=== PATIENT | male | born 1945 | race Caucasian/White ===

== ENCOUNTER 2024-02-10 16:44 | Inpatient (IN) | payer MEDICARE, OTHER, SELFPAY ==
[2024-02-10] VITALS (10 sets, daily range): BP systolic 97–179; BP diastolic 49–117; BMI 24.7; BMI 22.0
[2024-02-10 11:55] LABS: % Basophils 0.7 % (0-2); % Eosinophils 2.2 % (0-6); % Immature Granulocytes 0.3 % (0-0.5); % Lymphocytes 10.8 % (20.5-51.1); Absolute Basophils 0.1 10^3/uL (0-0.2); Absolute Eosinophils 0.2 10^3/uL (0-0.7); Absolute Lymphocytes 0.8 10^3/uL (1.2-3.4); Absolute Monocytes 0.6 10^3/uL (0.1-0.6); Absolute Neutrophils 5.8 10^3/uL (1.4-6.5); Hematocrit 39.2 % (39.0-52.0); Hemoglobin 13.6 g/dL (13.0-18.0); Mean Corp Hgb Conc. 34.7 g/dL (33.0-37.0); Mean Corpuscular Hgb 32.5 pg (27.0-31.0); Mean Corpuscular Volume 93.6 fL (80.0-94.0); Mean Platelet Volume 9.5 fL (7.4-10.4); Nucleated Red Blood Cells % 0 % (-); Platelet Count 188 10^3/uL (130-400); Red Blood Cell Count 4.19 10^6/uL (4.70-6.10); Red Cell Dist. Width 15.2 % (11.5-14.5); White Blood Cell Count 7.4 10^3/uL (4.8-10.8)
[2024-02-10 12:29] LABS: ALT (SGPT) 524 U/L (0-50); AST (SGOT) 815 U/L (17-59); Albumin 3.3 g/dl (3.5-5.0); Alkaline Phosphatase 258 U/L (38-126); Blood Urea Nitrogen 89 mg/dl (9-20); Calcium 7.7 mg/dl (8.4-10.2); Carbon Dioxide 21 mmol/L (22-30); Chloride 95 mmol/L (98-107); Estimated Creatinine Clearance 9 ml/min; Glucose 124 mg/dl (70-99); Potassium 4.9 mmol/L (3.5-5.1); Sodium 136 mmol/L (135-145); Total Bilirubin 1.3 mg/dl (0.2-1.3); Total Protein 6.1 g/dl (6.3-8.2); eGFR 7.55
--- NOTE | 2024-02-10 13:41 | W.CON.NEPH ---
Consultation
-
Date/Time Consultation Requested: 02/10/24 1300
Date/Time Consultation Performed: 02/10/24 1330
Requesting Provider: Dr Hernandez
Performing Provider: Dr Toth
Reason for Consultation: SHAYAN
Medical History
-
Chief Complaint: Fatigue, neuropathy
History of Present Illness:
This is a 78-year-old gentleman who has diabetes mellitus type 2 on oral medications as well as Ozempic which is typically well-controlled. He has hypertension on a monotherapy regimen which is also well-controlled as well as hyperlipidemia on
statin therapy also well-controlled. 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 This has been followed in the past by various vascular surgeons including [facility] here at [facility] as
well as [facility] No surgical options were viable. He has been followed conservatively. He has very mild chronic kidney disease with baseline creatinine 1.25 last known on September 17 of this year. On Wednesday night into Wednesday he woke up with severe
lower extremity weakness to the point where he had very difficult time getting out of bed. He was mostly bedbound at that point. He was able to go to the bathroom and get some food though not a lot given the weakness. Ultimately came to the
emergency room because of the worsening weakness. Blood work had shown a creatinine of 7.0 representing significant acute kidney injury. Bladder scan in the emergency room showed 169 cc of urine.
Past Medical History
Hypertension, severe aortic stenosis, coronary disease/myocardial infarction, peripheral arterial disease, heart failure reduced ejection fraction, prostatitis, ischemic lightest, chronic chelation therapy, BPH, prostate nodule, diabetes mellitus
type 2, prostate cancer, carotid endarterectomy on the right, appendectomy, pilonidal cyst resection, distal aortic occlusion
Social History
Tobacco: Former Smoker
Alcohol: None
Family History
Family History: Not Pertinent
Allergies / Home Medications
Allergy/AdvReac Type Severity Reaction Status Date / Time
No Known Allergies Allergy Unverified 09/24/22 13:48
�Medication �Instructions �Recorded �Confirmed �Type
metformin 1,000 mg tablet 500 mg PO BID@0800,1700 Diabetes 09/24/22 02/10/24 History
oxycodone myristate 9 mg capsule 9 mg PO Q12 Pain 09/24/22 02/10/24 History
sprinkle extended release 12
hr(DON'T CRUSH) (Xtampza ER)
therapeutic multivitamin 1 tab PO DAILY Supplement 09/24/22 02/10/24 History
aspirin 81 mg chewable tablet 81 mg PO DAILY Blood Clot 02/10/24 02/10/24 History
Prevention/Tx
clopidogrel 75 mg tablet 75 mg PO DAILY Blood Clot 02/10/24 02/10/24 History
Prevention/Tx
ezetimibe 10 mg tablet 10 mg PO HS High Cholesterol 02/10/24 02/10/24 History
furosemide 20 mg tablet 20 mg PO DAILY Fluid 02/10/24 02/10/24 History
Retention/Swelling
glipizide 10 mg tablet, extended 10 mg PO BID@0800,1700 Diabetes 02/10/24 02/10/24 History
release 24 hr
metoprolol succinate 25 mg 25 mg PO QPM heart disease/BP 02/10/24 02/10/24 History
tablet,extended release 24 hr
rosuvastatin 40 mg tablet 40 mg PO QPM High Cholesterol 02/10/24 02/10/24 History
Review of Systems
-
Lower extremity weakness. No issues with urination. Slightly decreased intake but good appetite. No chest pain or shortness of breath.
All other systems: Negative unless noted
Physical Exam
Vital Signs
Vital Signs
Temp Pulse Resp BP Pulse Ox
98.1 F 67 18 106/49 99
02/10/24 11:47 02/10/24 12:30 02/10/24 11:47 02/10/24 12:00 02/10/24 12:30
Lab Results
WBC 7.4 10^3/uL (4.8-10.8) 11/21/24 11:48
RBC 4.19 10^6/uL (4.70-6.10) L 02/10/24 11:48
Hgb 13.6 g/dL (13.0-18.0) 02/10/24 11:48
Hct 39.2 % (39.0-52.0) 02/10/24 11:48
Plt Count 188 10^3/uL (130-400) 02/10/24 11:48
Sodium 136 mmol/L (135-145) 02/10/24 11:48
Potassium 4.9 mmol/L (3.5-5.1) 02/10/24 11:48
Chloride 95 mmol/L (98-107) L 02/10/24 11:48
Carbon Dioxide 21 mmol/L (22-30) L 02/10/24 11:48
BUN 89 mg/dl (9-20) H 02/10/24 11:48
Creatinine 7.0 mg/dL (0.7-1.3) H* 02/10/24 11:48
eGFR 7.55 02/10/24 11:48
Glucose 124 mg/dl (70-99) H 02/10/24 11:48
Calcium 7.7 mg/dl (8.4-10.2) L 02/10/24 11:48
Albumin 3.3 g/dl (3.5-5.0) L 02/10/24 11:48
Laboratory Tests
10/17/22 10/19/22
06:12 04:29
Sodium 140
Carbon Dioxide 25
Creatinine 1.1
AST 61 H
ALT 78 H
Physical Exam
Patient is awake alert oriented and in no distress. Mood and affect were pleasant, insight and judgment were good. Pupils are equal round and reactive to light, extraocular movements are intact, sclera were anicteric. Hearing was normal, ears and
nose are intact. Oropharynx was clear. Neck was supple with trachea midline and no thyromegaly. Heart was regular rate and rhythm without rubs. Lower extremities with minimal edema. Lungs were clear to auscultation bilaterally and with normal
excursion. Abdomen was soft, nontender, with normal active bowel sounds, and no hepatosplenomegaly. Skin was with erythema in the feet and with normal turgor.
Data Reviewed
-
Medical Tests (Nuc Med, Echo etc): Image Personally Visualized and interpreted (EKG on 02/10/2024 by my read shows sinus rhythm with first reAV block, anterior inferior Q waves, lateral ST-T wave abnormality)
Labs: Labs Reviewed by me
Old Records: Reviewed
Assessment/Plan
-
Assessment
SHAYAN
Elevated LFTs
Distal aortic occlusion chronic
New lower extremity weakness
Coronary artery disease
Severe aortic stenosis
Heart failure reduced ejection fraction 45%
Diabetes mellitus type 2
Hyperlipidemia
Plan
Will check urine studies, straight catheterize if necessary
Will need vascular evaluation given new weakness as well as new acute kidney injury
Renal ultrasound or other abdominal imaging study
Can check serologies if necessary though current suspicion is that of ischemic injury to the kidneys
I discussed with the patient as well as his daughter and [id number] at length regarding the potential for dialysis. Currently he would except dialysis if necessary.
Follow BMP
--- NOTE | 2024-02-10 14:33 | HPS.HSE ---
Addendum entered and electronically signed by Hayley Hernandez MD 02/10/24 19:12:
Abdominal US:
IMPRESSION:
Intrahepatic and extrahepatic bile duct dilatation. Gallbladder hydrops. No sonographic evidence for a shadowing gallbladder calculus. BILE DUCTS: There is intrahepatic or extrahepatic biliary dilatation. The common bile duct measures 15 mm in
diameter
Renal Artery US:
IMPRESSION:
Both renal arteries are patent. Elevated velocities and elevated renal to aortic ratios observed bilaterally (3.2 on the right and 3.5 on the left) suggestive for mild bilateral stenoses.
CK is elevated at
Discussed CK findings with Dr. Toth, OK with fluids NS @ 200cc/hour. went to update patient about findings, he understands he may still require HD. Currently euvolemic on exam - told to discuss with RN if symptoms of shortness of breath develop
Regarding intra and extrahepatic biliary dilation - updated GI and will order MRI for AM
Original Note:
Family Physician
-
Family Physician: Anatoliy Carter
Chief Complaint
-
worsening weakness
History of Present Illness
Mr. Vikash Mendoza is a 78 yo man with hx DM, HTN, HLD, CKD, CAD, HFrEF, BPH, HFrEF (EF 45-50%), moderate/severe , known distal aortic occlusion extending to iliac arteries (no surgical options deemed available) presents to the ER with severe lower
extremity weakness.
Medical History
Past Medical History
Past Medical History: Reports Other (DM, HTN, HLD, CKD, CAD, HFrEF, BPH, HFrEF (EF 45-50%), moderate/severe , known distal aortic occlusion extending to iliac arteries)
Past Surgical History: Reports Appendectomy and Other (pilonnidal cyst removal )
Social History
Tobacco: Former Smoker
Alcohol: None
Drug: None
Family History
Family History: Not pertinent
Allergies / Home Medications
Allergies reflects when Allergies were last updated in [email or web address].
Home Medications with original date entered in [email or web address]
Allergy/Medication List:
Allergies
Allergy/AdvReac Type Severity Reaction Status Date / Time
No Known Allergies Allergy Unverified 09/24/22 13:48
Home Medications
metformin 1,000 mg tablet 500 mg PO BID@0800,1700 Diabetes 09/24/22
oxycodone myristate 9 mg capsule sprinkle extended release 12 hr(DON'T CRUSH) (Xtampza ER) 9 mg PO Q12 Pain 09/24/22
therapeutic multivitamin 1 tab PO DAILY Supplement 09/24/22
aspirin 81 mg chewable tablet 81 mg PO DAILY Blood Clot Prevention/Tx 02/10/24
clopidogrel 75 mg tablet 75 mg PO DAILY Blood Clot Prevention/Tx 02/10/24
ezetimibe 10 mg tablet 10 mg PO HS High Cholesterol 02/10/24
furosemide 20 mg tablet 20 mg PO DAILY Fluid Retention/Swelling 02/10/24
glipizide 10 mg tablet, extended release 24 hr 10 mg PO BID@0800,1700 Diabetes 02/10/24
metoprolol succinate 25 mg tablet,extended release 24 hr 25 mg PO QPM heart disease/BP 02/10/24
rosuvastatin 40 mg tablet 40 mg PO QPM High Cholesterol 02/10/24
Review of Systems
-
History Source: Patient
A 12 point ROS was completed and negative except as noted: Yes
Physical Exam
Vital Signs
Vital Signs
Temp Pulse Resp BP Pulse Ox
98.1 F 71 15 146/79 98
02/10/24 11:47 02/10/24 14:15 02/10/24 13:45 02/10/24 14:00 02/10/24 14:00
Physical Exam
General: No Apparent Distress
HEENT: PERRLA
Respiratory: Clear; No Wheezes
Cardiac: S1/S2 and Regular Rhythm
GI: Soft and Non Tender
Musculoskeletal: No Edema
Skin: Warm and Dry; No Rash
Neuro: AO x 3
Psych: Calm
Laboratory Results
-
02/10/24 11:48
02/10/24 11:48
Laboratory Results
Total Bilirubin 1.3 mg/dl (0.2-1.3) 02/10/24 11:48
AST 815 U/L (17-59) H* 02/10/24 11:48
ALT 524 U/L (0-50) H* 02/10/24 11:48
Alkaline Phosphatase 258 U/L (38-126) H 02/10/24 11:48
Data Reviewed
-
Diagnostic Radiology: Report Reviewed by me
Lab Data: Labs Reviewed by me
Impression/Plan
-
Mr. Vikash Mendoza is a 78 yo man with hx DM, HTN, HLD, CKD, CAD, HFrEF, BPH, HFrEF (EF 45-50%), moderate/severe , known distal aortic occlusion extending to iliac arteries (no surgical options deemed available) presents to the ER with severe lower
extremity weakness. He is found to have transaminitis and acute renal failure.
Triage VS: BP 151/62, RR 13, P 71, SpO2 99% RA
LABS: WBC 7.4, Hg 13.6, PLT 188, Na 136, K+ 4.9, Cl 95, CO2 21, BUN 89, Cr 7.0, Glucose 124, Ca 7.7, T. Bili 1.3, AST 815, ALT 524, Alk Phos 258
Bladder scan 169 cc urine
EKG: NSR @ 86, q waves inferior and anterior leads
Acute Renal Failure
Significant Transaminitis
Severe peripheral arterial disease with known distal aortic occlusion extending to iliac arteries
-concern that severe PAD and aortic blockage resulting in renal failure/ shock liver and LE weakness
-admit to IMU
-case discussed with vascular and renal, and curbsiding GI
-follow up abdominal US, renal US with doppler and LE arterial US. Ideally would obtain CTA but this would result in need for HD - discussing with specialists
-continue TECHNICAL ADJUSTER asa/plavix
-TECHNICAL ADJUSTER Rosuvastatin held with significantly elevated liver enzymes
-F/U serologies ordered by renal
-will send hepatitis panel, iron studies. I have sent a message to GI explaining situation and discussing possible consult
Coronary Artery Disease
-TECHNICAL ADJUSTER asa/plavix
-cath 10/11 showed MVD and patient was to follow up with CTS
Heart Failure Reduced Ejection Fraction
Moderate/Severe
-TTE 09/25/22 - EF 45-50%; moderate to severe
-TECHNICAL ADJUSTER Metoprolol
-hold TECHNICAL ADJUSTER Lasix
Chronic Pain on Xtampza
-hold TECHNICAL ADJUSTER long acting opiate with renal impairment
-short acting Oxy 5 PRN - adjust as needed
DM
-hold TECHNICAL ADJUSTER metformin, Glipizide
-ISS low
DVT PPx hep subQ
DNR - confirmed on admission
76 minutes spent on patient care
--- NOTE | 2024-02-10 14:42 | ED.GENMED ---
History of Present Illness
General
Chief Complaint: Weakness
Source: patient and spouse
Exam Limitations: none
Time Seen by Provider: 02/10/24 12:26
Nursing documentation reviewed up to this point in time: agreed with
History of Present Illness
History of Present Illness:
78-year-old male presenting to the emergency department today with concerns of bilateral leg pain some general weakness. Has been able to ambulate feels they are slightly weak and recently. Has had ongoing symptoms for many months. He is also had
decreased appetite. Denies any chest pain shortness breath fevers recent illness
Past History
Past History
ED Past Medical History: HTN, Hypercholesterolemia and NIDDM
ED Past Surgical History: Appendectomy and Cardiac
Social History
Tobacco: Non-smoker
Alcohol: None
Drug: None
Personal: Single
Living: with family
Review of Systems
Review of Systems
Allergies reviewed?: Yes
All Other Systems: ROS reviewed and negative except as documented in HPI and ROS
Phy Exam
Physical Exam
Physical Exam:
GENERAL: Alert , in no apparent distress
EYE: pupils equal and reactive
NECK: Supple, no significant adenopathy.
ENT: o/p clr, mmm.
CARDIAC: Regular rate and rhythm .
LUNGS: Clear breath sounds bilaterally, no acute respiratory distress, no wheezes/rales/rhonchi
ABDOMEN: Soft, without focal tenderness, no r/g, no cvat
NEUROLOGICAL: Alert and oriented, no focal neuro deficits
SKIN: Warm and dry, skin intact.
MUSCULOSKELETAL: No edema, well perfused.
PSYCH: Normal and appropriate interaction.
Course
Orders/Labs/Results
Orders:
Orders
02/10/24 11:48
Complete Blood Count/With Diff Urgent
Comprehensive Metabolic Panel Urgent
02/10/24 13:11
EKG [Electrocardiogram (*1)] Urgent
Reason for Study: Fatigue / Weakness
EKG- Treatment ONCE
Urinalysis Reflex To Culture Urgent
Date Specimen was Collected: 02/10/24
Time Specimen was Collected: 13:13
02/10/24 14:29
Body Fluid for Eosinophils Routine
Urine Creatinine Routine
02/10/24 14:30
Urine Sodium Routine
02/10/24 14:55
US Abdomen Complete/Upper Urgent
Comment:
Reason For Exam: transaminitis
02/10/24 15:00
Aspirin Chewable [Low Strength Aspirin] 81 mg PO NOW STA
02/10/24 15:05
0.9% Sodium Chloride 250 ml [Nss] 250 ml IV BOLUS
02/10/24 15:23
US Periph Art LOWER Ext w ARMINDA Urgent
Comment:
Reason For Exam: weakness BL LE
02/10/24 15:46
US Renal Artery Urgent
Reason For Exam: known aortic occlusion r/o throbosed renal arterie
02/10/24 16:25
CLAUDIA, IgG Reflex to HEp-2 [S] Routine
ANCA - MPO/PR3 Ab Profile [S] Routine
Anti Streptolysin Routine
Complement C3 Routine
Complement C4 Routine
02/10/24 16:32
Admit/Transfer Patient As Directed
Co-Sign Provider:
Level of Care: Inpatient admission
Assign to:: IMU- Intermediate Care
Physician / Group: Hayley Hernandez
Diagnosis: acute renal failure; severe PAD
Reason for Hospitalization: acute renal failure; severe PAD
Expected length of stay greater than two midnights?: Yes
ELOS- Estimated Length of Stay in days: 4
I certify the patient meets the requirements for IP care: Yes
PRN Pain Medication Management As Directed
May give lesser potent ordered pain med per pt: Yes
preference::
Protocol:: Medication orders for pain may be administered in a
manner that supports deferring to patient preference
when the pt is:
- Requesting an ordered lesser potent pain medication.
Least to most potent pain medications are defined
as: acetaminophen < NSAID < tramadol < opioids
(morphine, oxycodone, hydromorphone).
- Requesting a lesser dose of the same medication IF
ORDERED.
- Requesting a less intrusive route of administration
if both routes are prescribed by the provider (PO <
IV).
02/10/24 16:33
Clopidogrel Bisulfate [Plavix] 75 mg PO NOW STA
02/10/24 16:34
Code Status As Directed
Resuscitation Status: Do not resuscitate
Reached after discussion with pt or family/Healthcare POA: Yes
DNR Bracelet Application ONCE
02/10/24 16:36
Add On- LAB Routine
Tests Added?: TSH
Add On- LAB Urgent
Tests Added?: iron, ferritin, TIBC, iron % saturation
02/10/24 16:38
Hepatitis A IgM Antibody Routine
Hepatitis B Core Ab, IgM Routine
Hepatitis B Core Ab, Total Routine
Hepatitis B Surface Antigen Routine
Hepatitis C Antibody Routine
INR [Prothrombin Time] Routine
02/10/24 16:41
Tylenol [Acetaminophen] Routine
02/10/24 16:44
Echo 2D MMode Color/Doppler Routine
Reason for Study: concern for cardioembolic disease
Abnormal Lab Results
02/10/24
11:48
RBC 4.19 L 10^6/uL
(4.70-6.10)
MCH 32.5 H pg
(27.0-31.0)
RDW 15.2 H %
(11.5-14.5)
Absolute Lymphs (auto) 0.8 L 10^3/uL
(1.2-3.4)
Neutrophils % 78.0 H %
(42.2-75.2)
Lymphocytes % 10.8 L %
(20.5-51.1)
Chloride 95 L mmol/L
(98-107)
Carbon Dioxide 21 L mmol/L
(22-30)
BUN 89 H mg/dl
(9-20)
Creatinine 7.0 H* mg/dL
(0.7-1.3)
Glucose 124 H mg/dl
(70-99)
Calcium 7.7 L mg/dl
(8.4-10.2)
AST 815 H* U/L
(17-59)
ALT 524 H* U/L
(0-50)
Alkaline Phosphatase 258 H U/L
(38-126)
Total Protein 6.1 L g/dl
(6.3-8.2)
Albumin 3.3 L g/dl
(3.5-5.0)
02/10/24 11:48
02/10/24 11:48
Vital Signs
Initial and Last Documented VS:
Initial Vital Signs
BP
151/62
02/10/24 11:44
Last Documented Vital Signs
Temp Pulse Resp BP Pulse Ox
98.1 F 67 15 97/54 98
02/10/24 11:47 02/10/24 15:30 02/10/24 15:30 02/10/24 15:00 02/10/24 15:30
MDM/Problems Addressed
MDM/Problems Addressed:
78-year-old male past medical history of significant vascular disease, heart disease hypertension diabetes presenting to the emergency department today with concerns of worsening lower extremity discomfort and some generalized weakness. This has
been ongoing for multiple months seemingly somewhat worse over the past week denies specific abdominal pain fevers chest pain shortness of breath. Does have known vascular disease and was seen here a year ago with significant vascular disease to
the abdomen. He previously did not have significant abnormalities to his creatinine there was slight elevations last year but improved to around 1 moving forward. His creatinine here today 7.0 BUN of 89. Additionally has a transaminitis.
Concerning for vascular cause. Case discussed with nephrology who will follow the case. Patient will be admitted for further assessment. Vascular surgery was also notified.
CTA 09/2022: ABDOMEN and PELVIS CTA:
1. COMPLETE OCCLUSION of the INFRARENAL ABDOMINAL aorta at the level of the origin of the inferior mesenteric artery. Complete occlusion of the left common iliac and external iliac arteries.
2. Reconstitution of the common femoral arteries bilaterally during the arterial phase of enhancement with retrograde blood flow in the right external and common iliac arteries. Patent bilateral common femoral, superficial femoral, and profundus
femoral arteries.
3. SEVERE STENOSIS (greater than 70% diameter) at the origin of the INFERIOR MESENTERIC ARTERY.
4. ACUTE ISCHEMIC COLITIS of the ENTIRE DESCENDING COLON.
*Critical Care Note
Total Time (30-74mins, 75-104mins- exclusive of procedures): Not Applicable
ED Attending Note
-
Portions of this chart may have been created with voice recognition software.� Occasional wrong word or��sound alike� substitutions may have occurred due to the inherent limitations of voice recognition software.
Discharge Plan
Departure
Patient Disposition: Admit
Date of Disposition: 02/10/24
Time of Disposition: 14:45
Admit to: Med/Surg
Admit to doctor: Mary
Presentation/result/management discussed w/ accepting MD/DO: Hospitalist
Patient with high blood pressure during this ER visit?: No
Condition: Good
Covid-19: Not Applicable
Discharge Problem:
Renal failure, Transaminitis
Interventions
Interventions:
*Risk Screen - Suicide Last Done: 02/10/24 11:47
*General Assessment Last Done: 02/10/24 11:47
*Neglect/Abuse Screening Last Done: 02/10/24 11:47
*ED COVID-19 Vaccine History Last Done: 02/10/24 11:47
ED- Cardiac Assessment Last Done: 02/10/24 12:07
ED- Neurological Assessment Last Done: 02/10/24 12:07
ED- Pulmonary Assessment Last Done: 02/10/24 12:07
[2024-02-10] MEDS: LOW STRENGTH ASPIRIN 81 MG PO (15:05)
[2024-02-10] MEDS: NSS 250 IV (15:08)
--- NOTE | 2024-02-10 16:31 | CON.VAS ---
Addendum entered and electronically signed by Lico Do III, MD 02/11/24 13:52:
Patient seen and examined in the vascular lab with RACHELLE Salazar. I agree with the history/physical exam/assessment and plan:
Known to me from previous hospitalization consult and outpatient encounter
Known distal aortic and bilateral iliac occlusions
Presents with fatigue and weakness
No leg/foot pain. No wounds
SHAYAN
Appears well on exam, non toxic
Abd soft, NT
Feet cool to touch bilat
Dopp signals present bilat feet
No wounds bilat
His feet/LE's appear to be at baseline. Will obtain updated arterial studies.
Evaluate renal arteries for patency given new renal failure and history of distal aortic occlusion.
GI for workup of liver enzymes
Lico Do MD
Vascular Surgery
Original Note:
Consultation
Consultation Request
Performing Provider: Ernestina
Reason for Consultation: Bilateral lower extremity weakness
Medical History
-
Chief Complaint: Bilateral lower extremity weakness
History of Present Illness:
77-year-old male presented to ER today with a 1 week history of lower extremity weakness. Patient states the weakness has become more profound over the last day. He was unable to get himself out of bed this morning which led to this ER visit.
Patient is known to the vascular service as we saw him last admission in October 2022. At that time patient was noted to have distal occlusion of the aorta and iliac arteries by CT scan. At that time the patient noted no history of claudication,
rest pain, tissue loss. He states this has not changed. He does have [id number] neuropathy pain in his lower extremities and feet which is longstanding and unchanged. He is not very active.
Vascular consult for lower extremity weakness. Patient seen at bedside in US with Dr. Do. Nonpalpable femoral pulses, this is unchanged from prior visit. + Doppler to the right DP and + Doppler to left PT. bilateral feet are cool to touch which
patient states is his baseline. Slightly sluggish cap refill at the toes bilaterally. No wounds noted. Denies pain.
Past Medical History
Past Medical History: CAD, HTN, Hypercholesterolemia, NIDDM, IN, Valvular Disease and Other (Peripheral neuropathy, prostatitis)
Past Surgical History: Appendectomy and Other (Carotid endarterectomy at outside facility)
Social History
Tobacco: Former Smoker
Family History
Family History: Reviewed & Not Pertinent
Allergies / Home Medications
Allergy/AdvReac Type Severity Reaction Status Date / Time
No Known Allergies Allergy Unverified 09/24/22 13:48
�Medication �Instructions �Recorded �Confirmed �Type
metformin 1,000 mg tablet 500 mg PO BID@0800,1700 Diabetes 09/24/22 02/10/24 History
oxycodone myristate 9 mg capsule 9 mg PO Q12 Pain 09/24/22 02/10/24 History
sprinkle extended release 12
hr(DON'T CRUSH) (Xtampza ER)
therapeutic multivitamin 1 tab PO DAILY Supplement 09/24/22 02/10/24 History
aspirin 81 mg chewable tablet 81 mg PO DAILY Blood Clot 02/10/24 02/10/24 History
Prevention/Tx
clopidogrel 75 mg tablet 75 mg PO DAILY Blood Clot 02/10/24 02/10/24 History
Prevention/Tx
ezetimibe 10 mg tablet 10 mg PO HS High Cholesterol 02/10/24 02/10/24 History
furosemide 20 mg tablet 20 mg PO DAILY Fluid 02/10/24 02/10/24 History
Retention/Swelling
glipizide 10 mg tablet, extended 10 mg PO BID@0800,1700 Diabetes 02/10/24 02/10/24 History
release 24 hr
metoprolol succinate 25 mg 25 mg PO QPM heart disease/BP 02/10/24 02/10/24 History
tablet,extended release 24 hr
rosuvastatin 40 mg tablet 40 mg PO QPM High Cholesterol 02/10/24 02/10/24 History
Review of Systems
-
History Source: Patient
All other systems: Negative unless noted
Constitutional: Reports No Symptoms
EENT: Reports No Symptoms
Respiratory: Reports No Symptoms
Cardiac: Reports No Symptoms
Vascular: Denies Leg Pain / Claudication
Abdomen/GI: Reports No Symptoms
: Reports No Symptoms
Musculoskeletal: Reports No Symptoms
Skin: Reports No Symptoms
Neurological: Reports No Symptoms
Endocrine: Reports No Symptoms
Physical Exam
Vital Signs
Temp Pulse Resp BP Pulse Ox
98.1 F 67 15 97/54 98
02/10/24 11:47 02/10/24 15:30 02/10/24 15:30 02/10/24 15:00 02/10/24 15:30
Lab Results
02/10/24 11:48
02/10/24 11:48
Physical Exam
General: No Apparent Distress
HEENT: Normocephalic and Atraumatic
Respiratory: Non Labored Respirations
Cardiac: Negative JVD
GI: Soft, Non Tender and Non Distended
Musculoskeletal: No Clubbing, No Cyanosis and No Edema
Skin: Dry
Neuro: Awake, Alert and Oriented
Psych: Calm
Pulses: Bilateral Femoral: Doppler (Nonpalpable), Right Dorsalis Pedis: Doppler and Left Posterior Tibial: Doppler
Assessment / Plan
-
69-year-old male here for weakness bilateral lower extremities, left slightly weaker than right
No pain or wounds to the bilateral feet
New onset renal failure
Plan:
-Renal ultrasound to rule out thrombosed renal arteries, lower extremity arterial ultrasound with ABIs
-Will follow-up after scans
-Ideally would like CTA to assess everything but given new onset renal failure would hold off
-Recommend transaminitis workup
Data Reviewed
-
Labs: Labs Reviewed by me
[2024-02-10 17:42] LABS: Iron 71 ug/dl (49-181)
[2024-02-10 17:51] LABS: Percent Saturation 21 % (20-50); Total Iron Binding Capacity 335 ug/dl (261-462)
[2024-02-10 17:55] LABS: COVID-19 Antigen Negative (Negative)
[2024-02-10 18:04] LABS: INR 1.32; PT 16.9 Sec (11.4-14.6); Urine Albumin 2+ (Neg - Trace); Urine Bilirubin 1+ (Negative); Urine Character Clear (Clear); Urine Color Yellow; Urine Glucose Trace (Negative); Urine Ketone Negative (Negative); Urine Leukocyte Trace (Negative); Urine Nitrite Negative (Negative); Urine Occult Blood 4+ (Negative); Urine Specific Gravity 1.015 (<1.030); Urine Urobilinogen Negative (Neg - 1+)
[2024-02-10 18:09] LABS: Acetaminophen < 10 ug/ml (10-30)
[2024-02-10 18:22] LABS: Urine Squamous Cell 0-2 /LPF (Few)
[2024-02-10 18:23] LABS: Urine Bacteria Few (Negative); Urine White Cell 0-2 /HPF (0-5)
[2024-02-10 18:24] LABS: Urine Hyaline Cast 0-2 /LPF (0-2); Urine Sodium 55 mmol/L (30-90)
[2024-02-10 18:37] LABS: TSH 3.73 uIU/ml (0.47-4.68)
[2024-02-10 18:44] LABS: Creatine Phosphokinase 19682 U/L (55-170)
[2024-02-10] MEDS: PLAVIX 75 MG PO (18:48)
[2024-02-10] MEDS: TOPROL XL 25 MG PO (18:48)
[2024-02-10] MEDS: NSS 1000 IV (18:49)
[2024-02-10 19:09] LABS: Complement C3 126 mg/dl (88-165)
--- NOTE | 2024-02-10 19:40 | PTCARENOTE ---
Patient arrived to unit via stretcher, alert and oriented x 3. 94% room air. lungs clear throughout. telemetry NSR 1 degree. ABd soft, Do patent with dominic urine. Family at bedside and Dr. Hernandez arrived to update them on plan of care and Ultra
sound results
[2024-02-10 19:46] LABS: Glucose - Point of Care 76 mg/dl (70-99)
[2024-02-10] MEDS: HEPARIN 5000 UNITS SC (20:22)
[2024-02-10] MEDS: ROXICODONE 5 MG PO (20:29)
[2024-02-10 22:31] LABS: Blood Urea Nitrogen 93 mg/dl (9-20); Calcium 7.4 mg/dl (8.4-10.2); Carbon Dioxide 18 mmol/L (22-30); Glucose 86 mg/dl (70-99)
[2024-02-10 22:46] LABS: Estimated Creatinine Clearance 8 ml/min; eGFR 6.95
[2024-02-10 22:56] LABS: Chloride 98 mmol/L (98-107); Potassium 5.1 mmol/L (3.5-5.1); Sodium 137 mmol/L (135-145)
--- NOTE | 2024-02-10 23:46 | PTCARENOTE ---
Pt AAOx3, pleasant. BMP drawn per MD order, results relayed to Dr. Hernandez via TT. SR with 1st degree AV block on monitor. VS as documented. + dp pulses. Pt c/o pain/tingling in LEs in addition to pain on his sacrum and pain r/t hemorrhoids. Frequent
repositioning provided. Roxicodone provided per MAY. Do catheter intact. IVF running through R hand IV. Call cisse within reach. Pt ringing appropriately.
--- NOTE | 2024-02-10 23:59 | W.PN.UPDATE ---
Update Note
Progress Note Update
I'll hold Plavix with on-going work-up of liver and kidneys. Team to resume when clear if no procedures needed.
[2024-02-11] VITALS (19 sets, daily range): BP systolic 84–147; BP diastolic 33–107; BMI 22.5
[2024-02-11] MEDS: SODIUM BICARBONATE 1150 MEQ IV ×4 (00:31→21:57)
[2024-02-11] MEDS: ROXICODONE 5 MG PO ×2 (05:59→20:38)
--- NOTE | 2024-02-11 06:01 | PTCARENOTE ---
Pt c/o new lower abdominal pain and diaphoresis, states unable to rate pain. RACHELLE Quick notified, PRN roxicodone given per MAY.
[2024-02-11 06:14] LABS: Hematocrit 35.7 % (39.0-52.0); Hemoglobin 12.2 g/dL (13.0-18.0); Mean Corp Hgb Conc. 34.2 g/dL (33.0-37.0); Mean Corpuscular Hgb 32.5 pg (27.0-31.0); Mean Corpuscular Volume 95.2 fL (80.0-94.0); Mean Platelet Volume 9.3 fL (7.4-10.4); Platelet Count 163 10^3/uL (130-400); Red Blood Cell Count 3.75 10^6/uL (4.70-6.10); Red Cell Dist. Width 15.2 % (11.5-14.5); White Blood Cell Count 9.2 10^3/uL (4.8-10.8)
[2024-02-11 06:18] LABS: INR 1.29; PT 16.6 Sec (11.4-14.6)
[2024-02-11 06:48] LABS: ALT (SGPT) 482 U/L (0-50); AST (SGOT) 861 U/L (17-59); Albumin 2.8 g/dl (3.5-5.0); Alkaline Phosphatase 266 U/L (38-126); Blood Urea Nitrogen 93 mg/dl (9-20); Calcium 6.8 mg/dl (8.4-10.2); Carbon Dioxide 19 mmol/L (22-30); Chloride 95 mmol/L (98-107); Direct Bilirubin 0.8 mg/dl (0.0-0.4); Estimated Creatinine Clearance 8 ml/min; Glucose 50 mg/dl (70-99); Magnesium 2.4 mg/dl (1.6-2.3); Potassium 4.5 mmol/L (3.5-5.1); Sodium 136 mmol/L (135-145); Total Bilirubin 0.9 mg/dl (0.2-1.3); Total Protein 5.3 g/dl (6.3-8.2); eGFR 6.95
[2024-02-11 06:54] LABS: Creatine Phosphokinase 20394 U/L (55-170)
[2024-02-11 07:17] LABS: Glucose - Point of Care 43 mg/dl (70-99)
[2024-02-11] MEDS: DEXTROSE 50% SYRINGE 12.5 GRAMS IV (07:45)
[2024-02-11 07:52] LABS: Glucose - Point of Care 46 mg/dl (70-99)
--- NOTE | 2024-02-11 08:05 | W.PN.NEPH.PH ---
Today's Communication / Plan
-
Serological workup in progress
Will provide dialysis tomorrow,orders provided
IR to be consulted for temp dialysis catheter placed
Assessment/Plan
-
Assessment
SHAYAN
Elevated LFTs
Distal aortic occlusion chronic
New lower extremity weakness
Coronary artery disease
Severe aortic stenosis
Heart failure reduced ejection fraction 45%
Diabetes mellitus type 2
Hyperlipidemia
Plan
Renal artery duplex notable for patent blood flow to kidneys bilaterally
checked urine studies, straight catheterize if necessary (check aggressively)
Reviewed vascular evaluation given new weakness as well as new acute kidney injury
No evidence of hydronephrosis by abdominal ultrasound
Urine studies noted 4+ blood 2+ albumin, fractional excretion of sodium not consistent with prerenal stimulus
Holding metformin and diuretics at this time
Can check serologies if necessary though current suspicion is that of ischemic injury to the kidneys
Previously discussed with the patient as well as his daughter and [id number] at length regarding the potential for dialysis. Currently he would except dialysis if necessary.
Creatinine remains elevated at 7.5
Will arrange for dialysis tomorrow, no acute dialysis indication today
May require eventual renal biopsy early next week
-
-
Date of Service: February 11, 2024
CC / HPI / ROS
-
Chief Complaint:
Acute kidney
History of Present Illness:
Creatinine unchanged at 7.5
Hemodynamically stay
Review of Systems:
No chest pain or shortness of breath
Oliguric via Do
Lower extremity leg weakness
Labs
-
Labs:
WBC 9.2 10^3/uL (4.8-10.8) 02/11/24 05:55
RBC 3.75 10^6/uL (4.70-6.10) L 02/11/24 05:55
Hgb 12.2 g/dL (13.0-18.0) L 02/11/24 05:55
Hct 35.7 % (39.0-52.0) L 02/11/24 05:55
Plt Count 163 10^3/uL (130-400) 02/11/24 05:55
Sodium 136 mmol/L (135-145) 02/11/24 05:55
Potassium 4.5 mmol/L (3.5-5.1) 02/11/24 05:55
Chloride 95 mmol/L (98-107) L 02/11/24 05:55
Carbon Dioxide 19 mmol/L (22-30) L 02/11/24 05:55
BUN 93 mg/dl (9-20) H 02/11/24 05:55
Creatinine 7.5 mg/dL (0.7-1.3) H* 02/11/24 05:55
eGFR 6.95 02/11/24 05:55
Glucose 50 mg/dl (70-99) L* 02/11/24 05:55
Calcium 6.8 mg/dl (8.4-10.2) L* 02/11/24 05:55
Albumin 2.8 g/dl (3.5-5.0) L 02/11/24 05:55
Physical Exam
-
Vital Signs:
Vital Signs
Temp Pulse Resp BP Pulse Ox
98.1 F 93 21 106/69 99
02/11/24 04:59 02/11/24 06:00 02/11/24 06:00 02/11/24 06:00 02/11/24 02:00
Cardiovascular:: Regular rate and rhythm
Respiratory:: Bilateral: CTA
Lung Excursion:: Normal
Abdomen:: Nontender and Soft
Bowel Sounds:: Normal
Extremity Edema:: None: Bilateral:
Do Catheter: Yes
[2024-02-11 08:16] LABS: Glucose - Point of Care 93 mg/dl (70-99)
[2024-02-11] MEDS: NOVOLOG FLEXPEN-LOW RESISTANCE SC ×2 (08:16→16:44)
[2024-02-11] MEDS: CALCIUM GLUCONATE 100 IV (08:29)
[2024-02-11] MEDS: DEXTROSE 50% SYRINGE 25 GRAMS IV (08:29)
[2024-02-11 08:32] LABS: Anti Streptolysin Negative (Negative)
[2024-02-11] MEDS: LOW STRENGTH ASPIRIN 81 MG PO (08:36)
[2024-02-11] MEDS: HEPARIN 5000 UNITS SC ×2 (08:36→20:38)
--- NOTE | 2024-02-11 08:41 | PTCARENOTE ---
Pt hypoglycemic on am labs and morning accucheck. Juice give by assistant casino shift manager nurse x2 with re check x2, pt remains hypoglycemic. 1/2 amp D50 administered per protocol with good results. Dr. Melgar notified, additional order received for amp of D50 and
maintenance fluids. D50 administered, see MAY. IVT to bedside to obtain additional site.
[2024-02-11] MEDS: D5W 1000 IV (09:16)
[2024-02-11 10:19] LABS: Glucose - Point of Care 172 mg/dl (70-99)
[2024-02-11 11:32] LABS: Hepatitis B Surface Antigen Negative (Negative)
[2024-02-11 11:46] LABS: Glycohemoglobin (HgbA1c) 7.7 % (4.0-5.6)
[2024-02-11 11:51] LABS: Hepatitis B Core Ab, Total Negative (Negative); Hepatitis C Antibody Negative (Negative)
[2024-02-11 12:43] LABS: Glucose - Point of Care 181 mg/dl (70-99)
--- NOTE | 2024-02-11 13:00 | CON.GI ---
Addendum entered and electronically signed by Kailey Khan Do, MD 02/11/24 18:00:
I saw and examined the patient.
The SPINNING LATHE OPERATOR's note was reviewed and I agree with the note.
Comment: Vikash is a 78yo M with h/o DM, CAD, CM, and aortic stenosis with CKD who presents with acute bilateral LE weakness with concern for rhabdomyolysis. GI consulted for elevated LFTs and CBD dilation. He denies abdominal pain,
nausea/vomiting, diarrhea, dysphagia. Vitals stable, exam is obese NTTP, NABS. Labs reviewed elevated lipase 1336. CK 20,394. LFTs in hepatocellular pattern. MRI suspicious for pancreatitis. Distended gallbladder. Biliary ductal dilatation
appears relatively stable compared to prior CT examination from September 2022.
Impression
- Elevated LFTs
AST/ALT may rise in setting of rhabdomyolysis (elevated CK and muscle weakness) not liver disease
Other consideration is passed gallstone or congestive hepatopathy
- Distended or hydrops gallbladder
- Chemical pancreatitis
based on elevated lipase and MRI findings but no abd pain
- Acute on chronic kidney injury
- DM
- CAD
- CM
- Aortic stenosis
Recommendations
- No role for ERCP given MRI findings
- Consider consulting surgery for hydrops/distended gallbladder
- Serial H/H
- Awaiting viral hepatitis serologies
- Checking Doppler on Abd US to ensure patent vasculature
- Appreciate renal recs
Will follow with you
Addendum entered and electronically signed by RACHELLE Pelayo 02/11/24 13:37:
-Consider surgical consult for gallbladder hydrops
Original Note:
Consultation
-
Date/Time Consultation Requested: 02/10/24 1397
Date/Time Consultation Performed: 02/11/24 1245
Requesting Provider: Dr. Hernandez
Performing Provider: Dr. Light/RACHELLE Saxena
Reason for Consultation: elevated LFT
Medical History
Chief Complaint / HPI
Chief Complaint: Leg weakmess
History of Present Illness:
78-year-old male with past medical history of diabetes, chronic neuropathy, CAD with non-ST elevated [place], PAD, ischemic colitis, cardiomyopathy EF 45 to 50%, aortic stenosis, CKD, BPH who presented to the emergency room with inability to stand or
walk on Wednesday. Patient states that prior to this on Wednesday evening he was doing well. He does have a history of chronic opiate use for severe peripheral artery disease and chronic lower extremity pain. We are asked to evaluate for
elevated LFTs. The patient denies any GI complaints. He has never seen a serologist. He has never had an endoscopy or colonoscopy before. He denies any family history of GI malignancies. He states that other than not being able to walk
on Wednesday and needing the assistance of his son-in-law he was not having any issues. He denies any fevers, chills, nausea, vomiting, melena, hematochezia, dysphagia or odynophagia. No early satiety or unintentional weight loss. He denies
any abdominal discomfort. His bowel movements are soft formed regular daily and brown. He states his urine was normal yellow color until admission. Currently has a Do in place with rust colored urine. He denies any history of hepatitis,
jaundice or liver disease. He smoked but quit over 40 years ago. He does not drink any alcohol nor has he ever had any alcohol issues in the past. Denies any history of tattoos, piercings or IV drug use. He states he had no new medications. He
denies any falls or trauma. He denies laying around for extended period of time. Hepatitis B surface antigen negative, hepatitis B core total antibody negative, hepatitis C antibody negative. Hepatitis A IgM antibody pending, hepatitis B core IgM
antibody pending. Acetaminophen level negative. COVID-negative. CLAUDIA pending. WBC 9.2, hemoglobin 12.2 (baseline hemoglobin appears to be in the 11 range), hematocrit 35.7, platelets 163, PT 16.6, INR 1.29, sodium 136, potassium 4.5, chloride 95,
CO2 19, BUN 93, creatinine 7.5, glucose 50, hemoglobin A1c 7.7, calcium 6.8, magnesium 2.4, iron 71, TIBC 335, percent iron saturation 21, ferritin 335.0, total bilirubin 0.9 (down from 1.3), direct bilirubin 0.8, AST 861 (up from 815), ALT 482
(down from 524), alk phos 266 (up from 258), [place] [address] (up from ), albumin 2.8
Past Medical History
Past Medical History: Other (diabetes, chronic neuropathy, CAD with non-ST elevated NJ, PAD, ischemic colitis, cardiomyopathy EF 45 to 50%, aortic stenosis, CKD, BPH)
Past Surgical History: Other (Appendectomy, pilonidal cyst, carotid endarterectomy)
Social History
Tobacco: Former Smoker
Alcohol: None
Drug: None
Living: With Family
Employment: Retired
Family History
Family History: Other (No family history gastrointestinal malignancy or IBD)
Allergies / Home Medications
Allergy/AdvReac Type Severity Reaction Status Date / Time
No Known Allergies Allergy Unverified 09/24/22 13:48
�Medication �Instructions �Recorded
metformin 1,000 mg tablet 500 mg PO BID@0800,1700 Diabetes 09/24/22
oxycodone myristate 9 mg capsule 9 mg PO Q12 Pain 09/24/22
sprinkle extended release 12
hr(DON'T CRUSH) (Xtampza ER)
therapeutic multivitamin 1 tab PO DAILY Supplement 09/24/22
aspirin 81 mg chewable tablet 81 mg PO DAILY Blood Clot 02/10/24
Prevention/Tx
clopidogrel 75 mg tablet 75 mg PO DAILY Blood Clot 02/10/24
Prevention/Tx
ezetimibe 10 mg tablet 10 mg PO HS High Cholesterol 02/10/24
furosemide 20 mg tablet 20 mg PO DAILY Fluid 02/10/24
Retention/Swelling
glipizide 10 mg tablet, extended 10 mg PO BID@0800,1700 Diabetes 02/10/24
release 24 hr
metoprolol succinate 25 mg 25 mg PO QPM heart disease/BP 02/10/24
tablet,extended release 24 hr
rosuvastatin 40 mg tablet 40 mg PO QPM High Cholesterol 02/10/24
Review of Systems
-
All other systems: A 12 pt ROS was Negative except as stated above in HPI
Vital Signs
Temp Pulse Resp BP Pulse Ox
98.1 F 84 14 130/62 96
02/11/24 04:59 02/11/24 10:00 02/11/24 10:00 02/11/24 08:00 02/11/24 10:45
Physical Exam
Exam
General: No Apparent Distress
HEENT: Anicteric
Respiratory: Clear
Cardiac: Murmur
GI: Soft, Non Tender, Non Distended and Normal Bowel Sounds
Musculoskeletal: No Edema and Other (Pale, positive sensation bilateral lower extremities, able to wiggle toes)
Skin: Dry and Other
Neuro: AO x 3
Psych: Calm
Results
WBC 9.2 10^3/uL (4.8-10.8) 02/11/24 05:55
Hgb 12.2 g/dL (13.0-18.0) L 02/11/24 05:55
Hct 35.7 % (39.0-52.0) L 02/11/24 05:55
MCV 95.2 fL (80.0-94.0) H 02/11/24 05:55
Plt Count 163 10^3/uL (130-400) 02/11/24 05:55
Absolute Neuts (auto) 5.8 10^3/uL (1.4-6.5) 02/10/24 11:48
PT 16.6 Sec (11.4-14.6) H 02/11/24 05:55
INR 1.29 02/11/24 05:55
Sodium 136 mmol/L (135-145) 02/11/24 05:55
Potassium 4.5 mmol/L (3.5-5.1) 02/11/24 05:55
Chloride 95 mmol/L (98-107) L 02/11/24 05:55
Carbon Dioxide 19 mmol/L (22-30) L 02/11/24 05:55
BUN 93 mg/dl (9-20) H 02/11/24 05:55
Creatinine 7.5 mg/dL (0.7-1.3) H* 02/11/24 05:55
Calcium 6.8 mg/dl (8.4-10.2) L* 02/11/24 05:55
Total Bilirubin 0.9 mg/dl (0.2-1.3) 02/11/24 05:55
AST 861 U/L (17-59) H* 02/11/24 05:55
ALT 482 U/L (0-50) H 02/11/24 05:55
Alkaline Phosphatase 266 U/L (38-126) H 02/11/24 05:55
Hep B Core Total Ab Negative (Negative) 02/10/24 17:29
Hepatitis C Antibody Negative (Negative) 02/10/24 17:29
Diagnostic Image Results:
Ultrasound the abdomen:
Intrahepatic and extrahepatic bile duct dilatation. Gallbladder hydrops. No sonographic evidence for a shadowing gallbladder calculus.
MRI Abd without contrast:
IMPRESSION:
Minimal upper abdominal ascites. Findings suspicious for pancreatitis. Clinical correlation recommended.
Distended gallbladder. Biliary ductal dilatation appears relatively stable compared to prior CT examination from September 2022. No definite evidence of choledocholithiasis. No evidence of cholelithiasis on MRI examination.
Prior GI Procedures:
EGD: Never had
Colonoscopy: Never had
Assessment / Plan
-
78-year-old male with past medical history of diabetes, chronic neuropathy, CAD with non-ST elevated NJ, PAD, ischemic colitis, cardiomyopathy EF 45 to 50%, aortic stenosis, CKD, BPH who presented to the emergency room with inability to stand or
walk on Wednesday. Patient states that prior to this on Wednesday evening he was doing well. He does have a history of chronic opiate use for severe peripheral artery disease and chronic lower extremity pain. We are asked to evaluate for
elevated LFTs. Patient with no GI complaints. No abdominal pain. He denies any abdominal discomfort. His bowel movements are soft formed regular daily and brown. He states his urine was normal yellow color until admission. Currently has a
Do in place with rust colored urine. He denies any history of hepatitis, jaundice or liver disease. He smoked but quit over 40 years ago. He does not drink any alcohol nor has he ever had any alcohol issues in the past. Denies any history of
tattoos, piercings or IV drug use. He states he had no new medications. He denies any falls or trauma. He denies laying around for extended period of time. Hepatitis B surface antigen negative, hepatitis B core total antibody negative, hepatitis
C antibody negative. Hepatitis A IgM antibody pending, hepatitis B core IgM antibody pending. Acetaminophen level negative. COVID-negative. CLAUDIA pending. WBC 9.2, hemoglobin 12.2 (baseline hemoglobin appears to be in the 11 range), hematocrit
35.7, platelets 163, PT 16.6, INR 1.29, sodium 136, potassium 4.5, chloride 95, CO2 19, BUN 93, creatinine 7.5, glucose 50, hemoglobin A1c 7.7, calcium 6.8, magnesium 2.4, iron 71, TIBC 335, percent iron saturation 21, ferritin 335.0, total
bilirubin 0.9 (down from 1.3), direct bilirubin 0.8, AST 861 (up from 815), ALT 482 (down from 524), alk phos 266 (up from 258), [place] [address] (up from ), albumin 2.8
Impression:
Acute onset lower extremity weakness
Acute kidney injury
Elevated LFTs
Elevated CK
Severe aortic stenosis
Heart failure reduced ejection fraction, EF 45%
Plan:
-Check Doppler ultrasound of hepatic vasculature to ensure patency
-Await the rest of hepatitis viral panel
-Trend liver function test as well as platelets and INR
-CLAUDIA pending
-Further recommendations to be forthcoming
-
-
Thank you for consultation and allowing me to participate in the patient's care. Please call the area operations director GI physician during the after hours with any questions or concerns.
[2024-02-11] MEDS: NOVOLOG FLEXPEN-LOW RESISTANCE 1 UNITS SC (13:39)
--- NOTE | 2024-02-11 14:30 | PTCARENOTE ---
Pt to and from MRI via stretcher, now to [facility].
--- NOTE | 2024-02-11 15:02 | W.PN.HOSP.TC ---
Today's Communication/Plan
-
Assessment / Plan
Assessment / Plan
Imaging
Physical Exam
NAD, resting comfortably in bed
Scleral anicteric
Moist mucous membranes
No JVD
CTA bilateral
Normal S1-S2 no murmurs
Soft nontender nondistended bowel sounds active
No peripheral pitting edema
Moves extremities spontaneously
AAOx3
Assessment and Plan
Acute on chronic renal failure
-Nephrology following
-Bicarb drip
-Plan for hemodialysis initiation
-IR consult for temporary HD line
-Monitor urinary output
-Avoid nephrotoxins hypotension
-May require renal biopsy
Hypoglycemia
-Hypoglycemic protocol
-S/p 2 A D50
-D5 water
Transaminitis
-Potentially related to rhabdo as he has high CK
-MRI abdomen ordered
-GI ordered hepatic vasculature
-CLAUDIA pending
-Await hepatitis panel
CAD
Continue aspirin Plavix
Anticipated Discharge: > 48 hours
Subjective/Interval History
-
Date of Service: February 11, 2024
Seen and examined. No new complaints. No acute overnight events.
Objective Data
-
Labs:
Laboratory Results
02/11/24
05:55
WBC 9.2
Hgb 12.2 L
Hct 35.7 L
Plt Count 163
PT 16.6 H
INR 1.29
Sodium 136
Potassium 4.5
Chloride 95 L
Carbon Dioxide 19 L
BUN 93 H
Creatinine 7.5 H*
Glucose 50 L*
Calcium 6.8 L*
Total Bilirubin 0.9
AST 861 H*
ALT 482 H
Alkaline Phosphatase 266 H
Vital Signs:
Vital Signs
Temp Pulse Resp BP Pulse Ox
97.6 F 84 18 144/80 94
02/11/24 14:39 02/11/24 14:39 02/11/24 14:39 02/11/24 14:39 02/11/24 14:39
I&O
02/10/24 02/11/24 02/12/24
06:59 06:59 06:59
Intake Total 800 / 800
Balance 800 / 800
[2024-02-11 16:35] LABS: Lipase 1336 U/L (23-300)
[2024-02-11 16:44] LABS: Glucose - Point of Care 142 mg/dl (70-99)
[2024-02-11 17:22] LABS: Hepatitis A IgM Antibody Negative (Negative); Hepatitis B Core Ab, IgM Negative (Negative)
[2024-02-11] MEDS: TOPROL XL 25 MG PO (17:40)
--- NOTE | 2024-02-11 19:00 | PTCARENOTE ---
response for vitals signs after 190
--- NOTE | 2024-02-11 20:30 | PTCARENOTE ---
Addendum entered by Bhavna Crook RN 02/12/24 00:38:
pt as a nontunneled right internal jugular hemodialysis catheter in place with small amount of bloody drainage on dressing. first HD tomorrow at 11am.
Original Note:
Pt AAOx3, on tele SR with 1st degree AV block on monitor. B/L +dopler pulses. - pt takes prn galilea - see MAY. Do catheter intact. has family at bedside. pt has call cisse in reach.
[2024-02-11 21:47] LABS: Glucose - Point of Care 245 mg/dl (70-99)
[2024-02-12] VITALS (50 sets, daily range): BP systolic 85–153; BP diastolic 49–84; BMI 23.8
[2024-02-12] MEDS: ROXICODONE 5 MG PO ×4 (00:34→20:34)
[2024-02-12 03:30] LABS: Glucose - Point of Care 157 mg/dl (70-99)
[2024-02-12] MEDS: SODIUM BICARBONATE 1150 MEQ IV (04:34)
[2024-02-12 06:10] LABS: Hematocrit 35.9 % (39.0-52.0); Hemoglobin 12.7 g/dL (13.0-18.0); Mean Corp Hgb Conc. 35.4 g/dL (33.0-37.0); Mean Corpuscular Hgb 32.6 pg (27.0-31.0); Mean Corpuscular Volume 92.3 fL (80.0-94.0); Mean Platelet Volume 9.6 fL (7.4-10.4); Platelet Count 145 10^3/uL (130-400); Red Blood Cell Count 3.89 10^6/uL (4.70-6.10); Red Cell Dist. Width 14.8 % (11.5-14.5); White Blood Cell Count 7.6 10^3/uL (4.8-10.8)
[2024-02-12 06:25] LABS: INR 1.32; PT 16.6 Sec (11.4-14.6)
[2024-02-12 06:40] LABS: ALT (SGPT) 475 U/L (0-50); Albumin 2.4 g/dl (3.5-5.0); Alkaline Phosphatase 282 U/L (38-126); Blood Urea Nitrogen 100 mg/dl (9-20); Calcium 6.2 mg/dl (8.4-10.2); Carbon Dioxide 35 mmol/L (22-30); Chloride 80 mmol/L (98-107); Direct Bilirubin 0.9 mg/dl (0.0-0.4); Glucose 123 mg/dl (70-99); Potassium 4.8 mmol/L (3.5-5.1); Sodium 129 mmol/L (135-145); Total Bilirubin 1.1 mg/dl (0.2-1.3); Total Protein 4.9 g/dl (6.3-8.2)
[2024-02-12 06:45] LABS: AST (SGOT) 836 U/L (17-59); Estimated Creatinine Clearance 8 ml/min; eGFR 7.06
[2024-02-12 06:58] LABS: Creatine Phosphokinase 21594 U/L (55-170)
[2024-02-12] MEDS: D5W 1000 IV (07:11)
[2024-02-12 07:21] LABS: Glucose - Point of Care 119 mg/dl (70-99)
[2024-02-12] MEDS: NOVOLOG FLEXPEN-LOW RESISTANCE SC ×3 (08:41→17:00)
[2024-02-12] MEDS: LOW STRENGTH ASPIRIN 81 MG PO (08:42)
[2024-02-12] MEDS: HEPARIN 5000 UNITS SC ×2 (08:43→20:34)
--- NOTE | 2024-02-12 10:03 | W.PN.GI.CBS2 ---
Today's Communication / Plan
-
HD today may improve LFTs
Surgical consult for hydrops/distended GB
Tricky volume status given renal failure
Assessment / Plan
-
Vikash is a 78yo M with h/o DM, CAD, CM, and aortic stenosis with CKD who presents with acute bilateral LE weakness with concern for rhabdomyolysis. GI consulted for elevated LFTs and CBD dilation. He denies abdominal pain, nausea/vomiting,
diarrhea, dysphagia. Vitals stable, exam is obese NTTP, NABS. Labs reviewed elevated lipase 1336. CK 20,394. LFTs in hepatocellular pattern. MRI suspicious for pancreatitis. Distended gallbladder. Biliary ductal dilatation appears relatively
stable compared to prior CT examination from September 2022.
Impression
- Elevated LFTs
AST/ALT may rise in setting of rhabdomyolysis (elevated CK and muscle weakness) not liver disease
Other consideration is passed gallstone or congestive hepatopathy
- Distended or hydrops gallbladder
- Pancreatitis
- Acute on chronic kidney injury
- DM
- CAD
- CM
- Aortic stenosis
Recommendations
- No role for ERCP given MRI findings
- Consider consulting surgery for hydrops/distended gallbladder
- Serial H/H
- Awaiting viral hepatitis serologies
- Appreciate renal recs, HD for today
- Consider IVF may help rhabdo and pancreatitis
- NPO for now
Above d/w hospitalist. Will follow with you
Subjective
Subjective
Date of Service: February 12, 2024
He reports diffuse abd pain. No nausea/vomiting. His bilateral LE more weakness with pain. Dialysis catheter placed yesterday and having more pain.
Objective
Data Reviewed
Laboratory Data:
Laboratory Results
02/12/24 05:53
02/12/24 05:53
Laboratory Results
PT 16.6 Sec (11.4-14.6) H 02/12/24 05:53
INR 1.32 11/23/24 05:53
Magnesium 2.4 mg/dl (1.6-2.3) H 02/11/24 05:55
Total Bilirubin 1.1 mg/dl (0.2-1.3) 02/12/24 05:53
AST 836 U/L (17-59) H* 02/12/24 05:53
ALT 475 U/L (0-50) H 02/12/24 05:53
Alkaline Phosphatase 282 U/L (38-126) H 02/12/24 05:53
Lipase 1336 U/L (23-300) H* 02/11/24 05:55
Vital Signs and I&O:
Vital Signs
Temp Pulse Resp BP Pulse Ox
97.5 F 94 18 125/62 98
02/12/24 07:08 02/12/24 06:00 02/12/24 07:08 02/12/24 06:00 02/12/24 06:00
I&O
02/11/24 02/12/24 02/13/24
06:59 06:59 06:59
Intake Total 800 / 800 3340 / 3340
Output Total 475 / 475
Balance 800 / 800 2865 / 2865
Physical Exam
Physical Exam
GEN: No acute distress, conversant, irritable
HEENT: anicteric, extraocular movements intact, clear oropharynx without exudates
GI: soft, obese mildly-distended, not tender to palpation, normal active bowel sounds, no hepatosplenomegaly
EXT: bilateral LE weakness and pain
NEURO: AAOx3, non-focal
[2024-02-12] MEDS: MANNITOL 25% 12.5 GRAMS IV ×2 (12:06→12:57)
[2024-02-12 12:57] LABS: Glucose - Point of Care 88 mg/dl (70-99)
--- NOTE | 2024-02-12 13:30 | CON.GS ---
Consultation
-
Date/Time Consultation Requested: 02/12/24 0907
Requesting Provider: Albaro Melgar
Medical History
-
Chief Complaint: BLLE weakness
History of Present Illness:
Mr. 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
presented to the ER with severe lower extremity weakness and was found to be in renal failure with rhabdomyolysis and transaminitis. He denies abdominal pain, nausea or vomiting. He denies fevers or chills. He denies episodes of pain with eating. He
was on hemodialysis at time of exam with no abdominal pain or distention present on exam.
Past Medical History
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
Past Surgical History: Appendectomy and Other (pilonidal cyst removal)
Social History
Tobacco: Former Smoker
Alcohol: None
Family History
Family History: Reviewed & Not Pertinent
Allergies / Home Medications
Allergy/AdvReac Type Severity Reaction Status Date / Time
No Known Allergies Allergy Unverified 09/24/22 13:48
�Medication �Instructions �Recorded �Confirmed �Type
metformin 1,000 mg tablet 500 mg PO BID@0800,1700 Diabetes 09/24/22 02/10/24 History
oxycodone myristate 9 mg capsule 9 mg PO Q12 Pain 09/24/22 02/10/24 History
sprinkle extended release 12
hr(DON'T CRUSH) (Xtampza ER)
therapeutic multivitamin 1 tab PO DAILY Supplement 09/24/22 02/10/24 History
aspirin 81 mg chewable tablet 81 mg PO DAILY Blood Clot 02/10/24 02/10/24 History
Prevention/Tx
clopidogrel 75 mg tablet 75 mg PO DAILY Blood Clot 02/10/24 02/10/24 History
Prevention/Tx
ezetimibe 10 mg tablet 10 mg PO HS High Cholesterol 02/10/24 02/10/24 History
furosemide 20 mg tablet 20 mg PO DAILY Fluid 02/10/24 02/10/24 History
Retention/Swelling
glipizide 10 mg tablet, extended 10 mg PO BID@0800,1700 Diabetes 02/10/24 02/10/24 History
release 24 hr
metoprolol succinate 25 mg 25 mg PO QPM heart disease/BP 02/10/24 02/10/24 History
tablet,extended release 24 hr
rosuvastatin 40 mg tablet 40 mg PO QPM High Cholesterol 02/10/24 02/10/24 History
[facility] Natural Leg Ccramps PRN leg cramp 02/11/24 History
Review of Systems
-
History Source: Patient and Family
All other systems: Negative unless noted
A 10 point review of systems was completed, and was negative except as per HPI.
Physical Exam
Vital Signs
Temp Pulse Resp BP Pulse Ox
97.5 F 73 18 124/68 100
02/12/24 11:05 02/12/24 10:00 02/12/24 10:00 02/12/24 10:00 02/12/24 10:00
02/11/24 02/12/24 02/13/24
06:59 06:59 06:59
Actual Weight 67.1 kg 70.9 kg
Body Mass Index (BMI) 23.8
Lab Results
02/12/24 05:53
02/12/24 05:53
WBC 7.6 10^3/uL (4.8-10.8) 02/12/24 05:53
Hgb 12.7 g/dL (13.0-18.0) L 02/12/24 05:53
Hct 35.9 % (39.0-52.0) L 02/12/24 05:53
Plt Count 145 10^3/uL (130-400) 02/12/24 05:53
Abs Immat Gran (auto) 0.0 10^3/uL (0-0.05) 02/10/24 11:48
Neutrophils % 78.0 % (42.2-75.2) H 02/10/24 11:48
Physical Exam
General: Well Developed and No Apparent Distress
HEENT: Moist Mucous Membranes
Respiratory: Non Labored Respirations
GI: Soft, Non Tender and Non Distended
Skin: Warm and Dry
Neuro: Awake, Alert and AO x 3
Psych: Calm
Data Reviewed
-
Radiology: Image Personally Visualized and interpreted, Report Reviewed by me, Discussed with Physician, Discussed with Nurse, Discussed with Patient and Discussed with Family
MRI: Image Personally Visualized and interpreted, Report Reviewed by me, Discussed with Physician, Discussed with Nurse, Discussed with Patient and Discussed with Family
Labs: Labs Reviewed by me, Discussed with Physician, Discussed with Nurse, Discussed with Patient and Discussed with Family
Old Records: Reviewed
Assessment / Plan
-
Mr. 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
presented to the ER with severe lower extremity weakness and was found to be in renal failure with rhabdomyolysis and transaminitis.
US in work up for transaminitis with finding of possible hydrops on imaging without cholelithiasis, gallbladder and CBD distention present.
Follow up MRI noted stable CBD dilation from prior CT in 2022 and gallbladder distention again noted without wall thickening or inflammatory changes. There was no cholelithiasis or choledocholithiasis noted. There are noted mild inflammatory soft
tissue edema associated with the head of the pancreas and peripancreatic soft tissues suspicious for pancreatitis.
He has no GI complaints and is without tenderness or distention on exam. There is no leukocytosis and he is afebrile. Lipase is elevated 1336. No leukocytosis. Bilirubin wnl.
No plans for surgical intervention at this time
[2024-02-12] MEDS: HEPARIN 2000 UNITS INTRACATH (13:53)
--- NOTE | 2024-02-12 14:16 | W.PN.NEPH.HD ---
Assessment
-
pt seen during HD
vitals stable
BP are soft intermittently
sodium decreasing will d/c hypotonic fluids
ok for NS if needed for BPs
monitor BG
replace karmen IV
HD again tomorrow
temp CVC functions fine
Progress Note - Hemodialysis
-
Date of Service: February 12, 2024
Duration: 15 minutes and 2 hours
Potassium Bath: 3
Calcium Bath: 2.5
Opti-Dialyzer: 160
Ultrafiltration: Other (none)
Blood Flow: 200
Dialysate Flow: 600
Heparin: no
EPO: no
[2024-02-12] MEDS: CALCIUM GLUCONATE 100 IV (14:53)
--- NOTE | 2024-02-12 15:46 | W.PN.HOSP.TC ---
Today's Communication/Plan
-
Assessment / Plan
Assessment / Plan
Physical Exam
NAD, resting comfortably in bed
Scleral anicteric
Moist mucous membranes
No JVD
CTA bilateral
Normal S1-S2 no murmurs
Soft nontender nondistended bowel sounds active
No peripheral pitting edema
Moves extremities spontaneously
AAOx3
Assessment and Plan
Acute on chronic renal failure
-Nephrology following
-Bicarb drip
-Plan for hemodialysis initiation
-Temp HD line placed, for HD today
-Monitor urinary output
-Avoid nephrotoxins hypotension
-May require renal biopsy
Hypoglycemia
-Hypoglycemic protocol
-S/p 2 A D50
-D5 water
Transaminitis
-Potentially related to rhabdo as he has high CK
-MRI abdomen ordered
-GI ordered hepatic vasculature
-CLAUDIA pending
-Await hepatitis panel
CAD
-Continue aspirin Plavix
Rhabdo
-Difficult to provide fluids due to renal failure
Anticipated Discharge: > 48 hours
Subjective/Interval History
-
Date of Service: February 12, 2024
seen and examined. no new complaints. no acute overnight events
still with lower extremity muscle pain
temp hd line in right neck
Objective Data
-
Labs:
Laboratory Results
02/12/24
05:53
WBC 7.6
Hgb 12.7 L
Hct 35.9 L
Plt Count 145
PT 16.6 H
INR 1.32
Sodium 129 L
Potassium 4.8
Chloride 80 L
Carbon Dioxide 35 H
BUN 100 H
Creatinine 7.4 H*
Glucose 123 H
Calcium 6.2 L*
Total Bilirubin 1.1
AST 836 H*
ALT 475 H
Alkaline Phosphatase 282 H
Vital Signs:
Vital Signs
Temp Pulse Resp BP Pulse Ox
97.5 F 73 18 124/68 100
02/12/24 11:05 02/12/24 10:00 02/12/24 10:00 02/12/24 10:00 02/12/24 10:00
I&O
02/11/24 02/12/24 02/13/24
06:59 06:59 06:59
Intake Total 800 / 800 3340 / 3340
Output Total 475 / 475
Balance 800 / 800 2865 / 2865
[2024-02-12 17:10] LABS: Glucose - Point of Care 74 mg/dl (70-99)
[2024-02-12] MEDS: TOPROL XL 25 MG PO (18:20)
--- NOTE | 2024-02-12 19:00 | PTCARENOTE ---
this rn responsible for vital signs s/p 1380
[2024-02-12 19:28] LABS: ANA, IgG Reflex to HEp-2 None Detected (None Detected)
--- NOTE | 2024-02-12 20:30 | PTCARENOTE ---
Pt AAOx3, on tele SR with 1st degree AV block on monitor. pt takes prn galilea for c/o back,leg, and abd pain- see MAY. Do catheter intact. pt seems anxious and withdrawn, stating 'i'm not doing well, and i have pain' administered prn galilea-see mar
w/+eff. pt fell asleep. pt blood sugar=77;MI=143. Informed Aicha Castellanos LIBRARY MONITOR - added D5/0.9%sodium chloride at 50ml. pt reposition in bed w/ call cisse in reach.
[2024-02-12 20:37] LABS: Glucose - Point of Care 77 mg/dl (70-99)
[2024-02-12] MEDS: D5/0.9% SODIUM CHLORIDE 1000 IV (21:11)
[2024-02-12 23:15] LABS: Glucose - Point of Care 91 mg/dl (70-99)
[2024-02-12] MEDS: DILAUDID 0.25 MG IV (23:23)
[2024-02-13] VITALS (53 sets, daily range): BP systolic 83–153; BP diastolic 55–101; BMI 24.4; BMI 24.2
[2024-02-13] MEDS: ROXICODONE 5 MG PO ×3 (00:30→20:22)
[2024-02-13 06:32] LABS: Hematocrit 34.1 % (39.0-52.0); Mean Corp Hgb Conc. 35.2 g/dL (33.0-37.0); Mean Corpuscular Hgb 32.5 pg (27.0-31.0); Mean Corpuscular Volume 92.4 fL (80.0-94.0); Mean Platelet Volume 9.1 fL (7.4-10.4); Platelet Count 148 10^3/uL (130-400); Red Blood Cell Count 3.69 10^6/uL (4.70-6.10); Red Cell Dist. Width 14.9 % (11.5-14.5); White Blood Cell Count 10.5 10^3/uL (4.8-10.8)
[2024-02-13 07:12] LABS: Blood Urea Nitrogen 64 mg/dl (9-20); Calcium 6.8 mg/dl (8.4-10.2); Carbon Dioxide 33 mmol/L (22-30); Chloride 87 mmol/L (98-107); Creatine Phosphokinase 15826 U/L (55-170); Estimated Creatinine Clearance 11 ml/min; Glucose 47 mg/dl (70-99); Potassium 4.6 mmol/L (3.5-5.1); Sodium 129 mmol/L (135-145); eGFR 9.66
[2024-02-13 07:43] LABS: Glucose - Point of Care 55 mg/dl (70-99)
[2024-02-13 08:03] LABS: Glucose - Point of Care 56 mg/dl (70-99)
[2024-02-13 08:19] LABS: Glucose - Point of Care 68 mg/dl (70-99)
[2024-02-13] MEDS: MANNITOL 25% 12.5 GRAMS IV ×2 (08:26→09:38)
[2024-02-13] MEDS: FLEXBUMIN 25% FOR HEMODIALYSIS 12.5 GRAMS IV ×2 (08:26→10:49)
[2024-02-13] MEDS: HEPARIN 500 UNITS IV ×2 (08:28→10:49)
[2024-02-13 08:40] LABS: Glucose - Point of Care 73 mg/dl (70-99)
[2024-02-13] MEDS: NOVOLOG FLEXPEN-LOW RESISTANCE SC ×2 (08:55→12:40)
[2024-02-13] MEDS: HEPARIN 5000 UNITS SC ×2 (09:17→20:22)
[2024-02-13] MEDS: LOW STRENGTH ASPIRIN 81 MG PO (09:18)
[2024-02-13 09:43] LABS: ALT (SGPT) 505 U/L (0-50); Albumin 2.3 g/dl (3.5-5.0); Alkaline Phosphatase 331 U/L (38-126); Direct Bilirubin 1.1 mg/dl (0.0-0.4); Total Bilirubin 1.4 mg/dl (0.2-1.3); Total Protein 4.7 g/dl (6.3-8.2)
[2024-02-13 09:56] LABS: AST (SGOT) 1032 U/L (17-59)
--- NOTE | 2024-02-13 10:30 | W.PN.GI.CBS2 ---
Today's Communication / Plan
-
Trend LFTs
C/w HD
Will follow with you
Assessment / Plan
-
Vikash is a 78yo M with h/o DM, CAD, CM, and aortic stenosis with CKD who presents with acute bilateral LE weakness with concern for rhabdomyolysis. GI consulted for elevated LFTs and CBD dilation. He denies abdominal pain, nausea/vomiting,
diarrhea, dysphagia. Vitals stable, exam is obese NTTP, NABS. Labs reviewed elevated lipase 1336. CK 20,394. LFTs in hepatocellular pattern. MRI suspicious for pancreatitis. Distended gallbladder. Biliary ductal dilatation appears relatively
stable compared to prior CT examination from September 2022.
Impression
- Elevated LFTs
AST/ALT may rise in setting of rhabdomyolysis (elevated CK and muscle weakness) not liver disease
Other consideration is passed gallstone or congestive hepatopathy
- Distended or hydrops gallbladder
- Pancreatitis
- Acute on chronic kidney injury
- DM
- CAD
- CM
- Aortic stenosis
Recommendations
- MRI without signs of biliary obstruction or choledocholithiasis
- Viral hepatitis serologies negative for Hep A/B/C
- Add on mono spot
- CLAUDIA and acetaminophen negative
- At this juncture suspect ALT/AST elevation is related to muscle breakdown from rhabdo.
Above d/w hospitalist. Will follow with you
Subjective
Subjective
Date of Service: February 13, 2024
He states abd pain and LE pain improved. Tolerating diet but not much appetite
Objective
Data Reviewed
Laboratory Data:
Laboratory Results
02/13/24 06:24
02/13/24 06:24
Laboratory Results
PT 16.6 Sec (11.4-14.6) H 02/12/24 05:53
INR 1.32 02/12/24 05:53
Magnesium 2.4 mg/dl (1.6-2.3) H 02/11/24 05:55
Total Bilirubin 1.4 mg/dl (0.2-1.3) H 02/13/24 06:24
AST 1032 U/L (17-59) H* 02/13/24 06:24
ALT 505 U/L (0-50) H* 02/13/24 06:24
Alkaline Phosphatase 331 U/L (38-126) H 02/13/24 06:24
Lipase 1336 U/L (23-300) H* 02/11/24 05:55
Vital Signs and I&O:
Vital Signs
Temp Pulse Resp BP Pulse Ox
97.8 F 90 14 122/65 95
02/13/24 08:00 02/13/24 09:45 02/13/24 09:45 02/13/24 09:45 02/13/24 09:45
I&O
02/12/24 02/13/24 02/14/24
06:59 06:59 06:59
Intake Total 3340 / 3340
Output Total 475 / 475 800 / 800
Balance 2865 / 2865 -800 / -800
Physical Exam
Physical Exam
GEN: No acute distress, conversant, pleasant
HEENT: anicteric, extraocular movements intact, clear oropharynx without exudates
GI: soft, obese, mildly-distended, not tender to palpation, normal active bowel sounds, no hepatosplenomegaly
EXT: warm, well perfused, trace edema bilaterally
NEURO: AAOx3, non-focal
[2024-02-13 11:04] LABS: Glucose - Point of Care 114 mg/dl (70-99)
[2024-02-13] MEDS: HEPARIN 2000 UNITS INTRACATH (11:09)
--- NOTE | 2024-02-13 11:20 | W.PN.NEPH.HD ---
Addendum entered and electronically signed by Yolanda Montes De Oca MD 02/13/24 11:25:
HD tomorrow
Original Note:
Assessment
-
pt seen during HD
vitals stable
ongoing hypoglycemia on D5NS
encourage to eat
CK slowly improving
non oliguric with diaz
LFTs increasing still-GI follows
Progress Note - Hemodialysis
-
Date of Service: February 13, 2024
Duration: 45 minutes and 2 hours
Potassium Bath: 3
Calcium Bath: 2.5
Opti-Dialyzer: 160
Ultrafiltration: Other (0)
Blood Flow: 300
Dialysate Flow: 600
Heparin: yesx2
EPO: no
[2024-02-13 12:43] LABS: Glucose - Point of Care 122 mg/dl (70-99)
--- NOTE | 2024-02-13 13:05 | W.PN.HOSP.TC ---
Today's Communication/Plan
-
Continue HD per Neph recs
Assessment / Plan
Assessment / Plan
MRI ABD
IMPRESSION:
Minimal upper abdominal ascites. Findings suspicious for pancreatitis. Clinical correlation recommended.
Distended gallbladder. Biliary ductal dilatation appears relatively stable compared to prior CT examination from September 2022. No definite evidence of choledocholithiasis. No evidence of cholelithiasis on MRI examination.
Physical Exam
NAD, resting comfortably in bed
Scleral anicteric
Moist mucous membranes
No JVD
CTA bilateral
Normal S1-S2 no murmurs
Soft nontender nondistended bowel sounds active
No peripheral pitting edema
Moves extremities spontaneously
AAOx3
Assessment and Plan
Acute on chronic renal failure
-Nephrology following
-Day 2 hemodialysis
-Temp HD line placed
-Monitor urinary output
-Avoid nephrotoxins hypotension
-May require renal biopsy
Hypoglycemia
-Hypoglycemic protocol
-S/p 2 A D50
-D5 water
Transaminitis
-Potentially related to rhabdo as he has high CK
-ABD mri as above
-CLAUDIA pending
-Neg hepatitis panel
CAD
-Continue aspirin Plavix
Rhabdo
-Difficult to provide fluids due to renal failure
Anticipated Discharge: 24 - 48 hours
Subjective/Interval History
-
Date of Service: February 13, 2024
seen and examined. no new complaints. no acute ovenright events
Objective Data
-
Labs:
Laboratory Results
02/13/24
06:24
WBC 10.5
Hgb 12.0 L
Hct 34.1 L
Plt Count 148
Sodium 129 L
Potassium 4.6
Chloride 87 L
Carbon Dioxide 33 H
BUN 64 H
Creatinine 5.7 H*
Glucose 47 L*
Calcium 6.8 L*
Total Bilirubin 1.4 H
AST 1032 H*
ALT 505 H*
Alkaline Phosphatase 331 H
Vital Signs:
Vital Signs
Temp Pulse Resp BP Pulse Ox
97.8 F 90 14 122/65 95
02/13/24 08:00 02/13/24 09:45 02/13/24 09:45 02/13/24 09:45 02/13/24 09:45
I&O
02/12/24 02/13/24 02/14/24
06:59 06:59 06:59
Intake Total 3340 / 3340
Output Total 475 / 475 800 / 800
Balance 2865 / 2865 -800 / -800
--- NOTE | 2024-02-13 15:10 | CM ---
Patient seen at bedside with patient son and girlfriend. Patient daughter lives with patient and is away currently on vacation. Patient stated that he lives in a 2 story home but his bedroom is on the first floor. there are 5 steps to enter. Patient
PCP is Dr. George and he uses [facility] [address] in [place]. patient has had home health services from [facility]. Patient has been working until this past wednesday and thus had the services stopped. CM reviewed options and patient indicated
that he would participate with therapy to see if he could get stronger to resume his independence. Patient son indicated that patient had started the paperwork to retire by the end of the year. CM will continue to follow for discharge planning needs.
Plan; SNF vs home with VN. pending assessment/PT/OT recommendations
[2024-02-13 16:20] LABS: Myeloperoxidase Antibody 0 AU/mL (0-19); Serine Protease-3, IgG 2 AU/mL (0-19)
[2024-02-13 17:06] LABS: Glucose - Point of Care 213 mg/dl (70-99)
[2024-02-13] MEDS: NOVOLOG FLEXPEN-LOW RESISTANCE 300 UNITS SC (18:22)
[2024-02-13] MEDS: TOPROL XL 25 MG PO (18:22)
[2024-02-13] MEDS: D5/0.9% SODIUM CHLORIDE 1000 IV (18:22)
[2024-02-13 21:47] LABS: Glucose - Point of Care 235 mg/dl (70-99)
--- NOTE | 2024-02-13 23:32 | PTCARENOTE ---
Pt AAOx3, forgetful at times. Pt normal sinus with BBB and 1st degree AV block on tele. Pt has decreased sensation in legs, pulses normal, trace edema. Pt 94% on RA. Pt complaining of right and left lower abdominal pain rating a 8/10 and describes
it as sharp constant pain. Administered ordered Roxicodone and will reassess pain see MAR. Pt required frequent repositioning. Heel and elbow silicone border foams changed. Sacral foam replaced. Do catheter intact in place with stat lock. Do
care given. Oral care done. IVF through R hand IV. Pt son at bedside. Pt rings appropriately and has call cisse within reach.
[2024-02-14] VITALS (52 sets, daily range): BP systolic 62–153; BP diastolic 40–83; BMI 25.4
[2024-02-14] MEDS: ROXICODONE 5 MG PO (00:25)
[2024-02-14] MEDS: SENOKOT-S 1 TABLET PO (00:26)
[2024-02-14 03:43] LABS: Glucose - Point of Care 255 mg/dl (70-99)
--- NOTE | 2024-02-14 05:50 | PTCARENOTE ---
Pt expresses frustration with having to get lab work this AM. Pt states 'I want to ', and reports that his pain is severe despite medication administration. Pt refused lab work and refused to be turned. Pt 86% on room air and refused oxygen via
NC. Pt encouraged to express and voice his wishes to his family and providers today. RACHELLE Grimm made aware and will make dayshift aware. Support provided and call cisse within reach. Will report to daysiqra RN.
[2024-02-14 09:10] LABS: Glucose - Point of Care 205 mg/dl (70-99)
--- NOTE | 2024-02-14 09:12 | W.PN.HOSP.TC ---
Addendum entered and electronically signed by Coleman Pimentel MD 02/14/24 22:01:
Attending Addendum-
I saw and evaluated the patient. I reviewed the resident�s note and agree with findings and plan as documented in the resident�s note. Sub: 'yeah i want everything done' complains of pain all over most in b/l LE. Full 12 point ROS reviewed and
negative except as documented Exam: Vitals reviewed in chart GEN- NAD heart RRR lines right tunneled IJ CDI heart 05/25 SM @ rusb lungs clrackes at bases abd soft mildly distended NT no rebound/guarding LE +1 pitting edema diaz in place draining
clear yellow urine
Plan:
#Acute on chronic renal failure
-Nephrology following
-HC 02/11, 02/12
-patient refusing HD and aborted 02/13 due to low BP
-Temp HD line in place
-Monitor urinary output
-Avoid nephrotoxins hypotension
-May require renal biopsy
# Transaminitis
-repeat LFT in am
-Potentially related to rhabdo
-check HIDA (held due to morphine administration)
-CLAUDIA pending
-Neg hepatitis panel
# Hyponatremia-
- likely hypervolemic
- cont HD as able
# CAD/PAD
- known distal aortic occlusion
- ASA and plavix held for now
# Hypotension
- start levophed to maintain MAP>65
- add midodrine
# DM2
- cont SSI
- metformin and glip on hold
# Chronic HFmrEF
- echo 45-50%
- unable to remove fluid due to low BPs
- CTM strict I and O diaz and daisy weights
# Leukocytosis
- CTM
- repeat CBC in am
# CAD
-Continue aspirin Plavix
# Rhabdomyolysis
- cpk improving
- hold statin
- Difficult to provide fluids due to renal failure
- cont HD
# HTN-
- metoprolol on hold
Code- patient desires to be full code but wants to talk to family first
Time spent coordinating care, review of plan of care with resident, personally reviewed records in EMR, med rec, consults, notes, labs, radiology, d/w nursing � 62 mins
Original Note:
Today's Communication/Plan
-
Pain management
Control BP with midodrine and levo (if required) to maintain SBP more than 90
Continue Toprol, aspirin, heparin
Hold dialysis for now
Continue to monitor I&O
Check lactic acid
HIDA scan not feasible at this time
Assessment / Plan
Assessment / Plan
77-year-old male presents with lower extremity weakness from 1 week prior to admission. Initial labs in ED showed elevated LFTs, elevated creatinine at 7, elevated creatinine kinase>25486, elevated lipase at 1336. Sodium and potassium were within
normal limits on admission. Bladder scan yielded 169 cc urine in ED. EKG showed NSR and hemodynamics were stable.
Abdominal US (02/09):Intrahepatic and extrahepatic bile duct dilatation. Gallbladder hydrops. No sonographic evidence for a shadowing gallbladder calculus. BILE DUCTS: There is intrahepatic or extrahepatic biliary dilatation. The common bile duct
measures 15 mm in diameter.
Abd/pelvis MRI (02/10): Minimal upper abdominal ascites. Findings suspicious for pancreatitis. Clinical correlation recommended.
Distended gallbladder. Biliary ductal dilatation appears relatively stable compared to prior CT examination from September 2022. No definite evidence of choledocholithiasis. No evidence of cholelithiasis on MRI examination.
Renal Artery US (02/09): Both renal arteries are patent. Elevated velocities and elevated renal to aortic ratios observed bilaterally (3.2 on the right and 3.5 on the left) suggestive for mild bilateral stenoses.
Echo (02/10):Normal left ventricular size and mildly reduced systolic function. LV ejection fraction is 45-50% by visual estimation, mild global hypokinesis.Severe aortic stenosis (chronic)
Chronic conditions prior to admission
DM type II
CAD/ [place]
Esssential HTN
HLD
CKD
HFrEF
BPH
Moderate/severe
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
Assessment and Plan
#Acute on chronic renal failure
-Nephrology following
-Completed 2 sessions of hemodialysis on 02/11 and 02/12
-Due for third session of hemodialysis today-hold for now due to hemodynamic instability
-Monitor I/O daily
-Avoid nephrotoxins as much as possible
-FeNa>5-May require eventual renal biopsy
-high CK-likely rhabdo possibly in the setting of prolonged immobilization
#Hypoglycemia
-Hypoglycemic protocol
-Currently controlled
-Continue bedside glucose monitoring
-Receiving D5 N/S @50
#Transaminitis/CBD dilation
-Elevated AST/ALT possibly in the setting of rhabdomyolysis
-GI is following
-CLAUDIA, C3, C4, MPO, PR3 within normal limits
-Acetaminophen toxicity negative
-Viral hepatitis panel pending
-GI plans on HIDA scan; nuc-med requires patient to be morphine-free to be able to do the scan
# Gallbladder hydrops
-GI following-management deferred to general surgery
-General Surgery-no indication for surgery at this time-signed off
#CAD
-Continue heparin and aspirin
# Low systolic blood pressure
-Midodrine 5 3 times daily
-Pressors if needed to maintain SBP more than 90
-Check lactic acid
# Tachycardia
-Receiving Toprol
# Pain management
Oxycodone 5 every 4 hours
IV morphine 1 mg every 2 hours
#DVT prophylaxis
Heparin SQ
CODE STATUS: DNR
Spoke in-person to son Aravind and daughter Agustina (on the phone) about how they would like to proceed regarding their father's clinical condition. They would like to take some more time to decide whether they would want him to be transferred to
comfort care/hospice.
Anticipated Discharge: > 48 hours
Subjective/Interval History
-
Date of Service: February 14, 2024
Patient complains of excruciating pain all over the body but specifically points to his abdomen. Does not have any appetite.
Objective Data
-
Labs:
Laboratory Results
02/14/24
06:00
WBC Pending
Hgb Pending
Hct Pending
Plt Count Pending
Sodium Pending
Potassium Pending
Chloride Pending
Carbon Dioxide Pending
BUN Pending
Creatinine Pending
Glucose Pending
Calcium Pending
Vital Signs:
Vital Signs
Temp Pulse Resp BP Pulse Ox
97.7 F 101 22 153/78 87
02/14/24 03:05 02/14/24 05:00 02/14/24 05:00 02/14/24 05:00 02/14/24 05:00
I&O
02/13/24 02/14/24 02/15/24
06:59 06:59 06:59
Intake Total 240 / 240
Output Total 800 / 800 650 / 650
Balance -800 / -800 -410 / -410
Review of Systems
-
History Source: Patient
All other systems: Reviewed and negative
Constitutional: Reports No Appetite and Other (Severe pain all over the body, especially stomach radiates to back)
Respiratory: Reports Trouble Breathing
Abdomen/GI: Reports Abdominal Pain, Nausea (Negative) and Vomiting (Negative)
Physical Exam
-
General: Appears in Distress and Appears Chronically Ill
HEENT: Normocephalic and Anicteric
Respiratory: Clear to Auscultation
Cardiac: Regular Rhythm and S1/S2
GI: Soft, Nontender, Nondistended and Normal Bowel Sounds
Musculoskeletal: No Edema and Other (Distal lower extremity pulses not palpable)
Skin: Dry and IV Access / Catheter Site (Right IJ)
Neuro: Awake, Alert, Oriented, AO x 3 and Other (Neuro exam normal as far as patient cooperates)
--- NOTE | 2024-02-14 09:15 | W.PN.GI.CBS2 ---
Today's Communication / Plan
-
Urgent HIDA scan
Case d/w surgery
NPO for now
Assessment / Plan
-
Vikash is a 78yo M with h/o DM, CAD, CM, and aortic stenosis with CKD who presents with acute bilateral LE weakness with concern for rhabdomyolysis. GI consulted for elevated LFTs and CBD dilation. He denies abdominal pain, nausea/vomiting,
diarrhea, dysphagia. Vitals stable, exam is obese NTTP, NABS. Labs reviewed elevated lipase 1336. CK 20,394. LFTs in hepatocellular pattern. MRI suspicious for pancreatitis. Distended gallbladder. Biliary ductal dilatation appears relatively
stable compared to prior CT examination from September 2022.
Impression
- Elevated LFTs
AST/ALT may rise in setting of rhabdomyolysis (elevated CK and muscle weakness) not liver disease
Other consideration is passed gallstone or congestive hepatopathy
- Distended or hydrops gallbladder
- Pancreatitis
- Acute on chronic kidney injury
- DM
- CAD
- CM
- Aortic stenosis
Recommendations
- MRI without signs of biliary obstruction or choledocholithiasis
- Viral hepatitis serologies negative for Hep A/B/C
- CLAUDIA and acetaminophen negative
- At this juncture suspect ALT/AST elevation is related to muscle breakdown from rhabdo and possible chronic cholecystitis
- Case d/w general surgeon recommendation is HIDA. Ordered urgent may need perc drain vs surgery if positive.
Will follow with you
Subjective
Subjective
Date of Service: February 14, 2024
His abd pain worsening compared to admission
Despite having a diet he is not wanting to eat. LFTs rising
Objective
Data Reviewed
Laboratory Data:
Laboratory Results
PT 16.6 Sec (11.4-14.6) H 02/12/24 05:53
INR 1.32 02/12/24 05:53
Magnesium 2.4 mg/dl (1.6-2.3) H 02/11/24 05:55
Total Bilirubin 1.4 mg/dl (0.2-1.3) H 02/13/24 06:24
AST 1032 U/L (17-59) H* 02/13/24 06:24
ALT 505 U/L (0-50) H* 02/13/24 06:24
Alkaline Phosphatase 331 U/L (38-126) H 02/13/24 06:24
Lipase 1336 U/L (23-300) H* 02/11/24 05:55
Vital Signs and I&O:
Vital Signs
Temp Pulse Resp BP Pulse Ox
97.7 F 101 22 153/78 87
02/14/24 03:05 02/14/24 05:00 02/14/24 05:00 02/14/24 05:00 02/14/24 05:00
I&O
02/13/24 02/14/24 02/15/24
06:59 06:59 06:59
Intake Total 240 / 240
Output Total 800 / 800 650 / 650
Balance -800 / -800 -410 / -410
Physical Exam
Physical Exam
GEN: No acute distress, conversant, uncomfortable appearing
HEENT: anicteric, extraocular movements intact, clear oropharynx without exudates
GI: soft, mildly-distended, diffusely tender to palpation, normal active bowel sounds, no hepatosplenomegaly
EXT: warm, well perfused, trace edema bilaterally
NEURO: AAOx3, non-focal
[2024-02-14] MEDS: HEPARIN SC (09:17)
[2024-02-14] MEDS: LOW STRENGTH ASPIRIN PO (09:19)
--- NOTE | 2024-02-14 09:24 | PTCARENOTE ---
Report received from loan documentation specialist nurse- made aware of pt's frustrations regarding plan of care and pain management. Emotional support provided to pt. Refusing medications and labs at this time. Dr. Albrecht and Dr Pimentel made aware; Dr Albrecht to
bedside.
[2024-02-14] MEDS: MORPHINE SULFATE 1 MG IV ×3 (09:58→22:52)
[2024-02-14] MEDS: NOVOLOG FLEXPEN-LOW RESISTANCE 2 UNITS SC (10:01)
--- NOTE | 2024-02-14 12:06 | CM ---
Patient with new HD. Plan for urgent HIDA Scan. Room air. NPO/IVF. Receiving IV MS prn, Roxicodone prn. Per nurse assessment; weak gait transferring.
Messages with Dr Vega; patient will need an outpatient HD referral for dialysis. He can be followed at [facility] or [facility], wherever is closest/wherever he prefers.
Patient will benefit from PT/OT Evals once medically less acute.
Plan continue to follow patient 's mobility.
Plan follow up with patient re; HD location preference.
--- NOTE | 2024-02-14 12:12 | PTCARENOTE ---
Pt hypotensive with SBP in the s. Dr. Albrecht and Dr. Pimentel made aware.
[2024-02-14 13:04] LABS: Hematocrit 31.7 % (39.0-52.0); Hemoglobin 10.7 g/dL (13.0-18.0); Mean Corp Hgb Conc. 33.8 g/dL (33.0-37.0); Mean Corpuscular Hgb 32.4 pg (27.0-31.0); Mean Corpuscular Volume 96.1 fL (80.0-94.0); Mean Platelet Volume 9.8 fL (7.4-10.4); Platelet Count 132 10^3/uL (130-400); Red Cell Dist. Width 15.3 % (11.5-14.5); White Blood Cell Count 11.2 10^3/uL (4.8-10.8)
--- NOTE | 2024-02-14 13:09 | W.PN.NEPH.PH ---
Today's Communication / Plan
-
Dialysis aborted today due to hemodynamic instability
Assessment/Plan
-
Assessment
SHAYAN/rhabdomyolysis
Elevated LFTs
Distal aortic occlusion chronic
New lower extremity weakness
Coronary artery disease
Severe aortic stenosis
Heart failure reduced ejection fraction 45%
Diabetes mellitus type 2
Hyperlipidemia
Plan
Renal artery duplex notable for patent blood flow to kidneys bilaterally
checked urine studies, straight catheterize if necessary (check aggressively)
Reviewed vascular evaluation given new weakness as well as new acute kidney injury
No evidence of hydronephrosis by abdominal ultrasound
Urine studies noted 4+ blood 2+ albumin, fractional excretion of sodium not consistent with prerenal stimulus
Holding metformin and diuretics at this time
Can check serologies if necessary though current suspicion is that of ischemic injury to the kidneys and or rhabdomyolysis
Patient to uncooperative and hemodynamically unstable for dialysis today
Normal saline boluses can be provided for hypotension
follow cpk levels
Will attempt HD again tomorrow
-
-
Date of Service: February 14, 2024
CC / HPI / ROS
-
Chief Complaint:
Acute kidney
History of Present Illness:
SHAYAN with dialysis x 2 provided
Hemodynamically unstable
Review of Systems:
Significant pain
Do was removed per protocol
Lower extremity leg weakness
Labs
-
Labs:
WBC 11.2 10^3/uL (4.8-10.8) H 02/14/24 12:50
RBC 3.30 10^6/uL (4.70-6.10) L 02/14/24 12:50
Hgb 10.7 g/dL (13.0-18.0) L 02/14/24 12:50
Hct 31.7 % (39.0-52.0) L 02/14/24 12:50
Plt Count 132 10^3/uL (130-400) 02/14/24 12:50
eGFR 9.66 02/13/24 06:24
Albumin 2.3 g/dl (3.5-5.0) L 02/13/24 06:24
Physical Exam
-
Vital Signs:
Vital Signs
Temp Pulse Resp BP Pulse Ox
98.0 F 113 23 75/52 92
02/14/24 07:18 02/14/24 12:03 02/14/24 12:03 02/14/24 12:03 02/14/24 12:00
Cardiovascular:: Regular rate and rhythm
Respiratory:: Bilateral: CTA
Lung Excursion:: Normal
Abdomen:: Nontender and Soft
Bowel Sounds:: Normal
Extremity Edema:: None: Bilateral:
Do Catheter: Yes
[2024-02-14 13:14] LABS: Monotest Negative (Negative)
[2024-02-14 13:19] LABS: Glucose - Point of Care 176 mg/dl (70-99)
[2024-02-14 13:31] LABS: Blood Urea Nitrogen 47 mg/dl (9-20); Calcium 7.3 mg/dl (8.4-10.2); Carbon Dioxide 30 mmol/L (22-30); Chloride 94 mmol/L (98-107); Glucose 175 mg/dl (70-99); Potassium 4.1 mmol/L (3.5-5.1); Sodium 133 mmol/L (135-145)
[2024-02-14] MEDS: D5/0.9% SODIUM CHLORIDE 1000 IV (13:32)
--- NOTE | 2024-02-14 13:32 | PTCARENOTE ---
Do removed, pt DTV at 1931. Pt educated on voiding trial.
[2024-02-14] MEDS: NOVOLOG FLEXPEN-LOW RESISTANCE 1 UNITS SC (13:33)
[2024-02-14 13:45] LABS: Lactic Acid 2.1 mmol/L (0.7-2.0)
--- NOTE | 2024-02-14 13:49 | PTCARENOTE ---
Pt continues to express frustration with care. Attempted to administer Midodrine, pt tearful and states 'I can't do it.' Pt reports 'everything hurts' and that 'you're not listening.' Emotional support provided. This RN asked pt if anyone had
broached the subject of comfort care/hospice care which he replied they had not. Educated on comfort care/hospice care and pt expressed interest in learning more. Dr. Albrecht notified; states she will come speak with pt. Pt repositioned for comfort.
[2024-02-14 13:58] LABS: Estimated Creatinine Clearance 14 ml/min; eGFR 12.83
[2024-02-14 14:56] LABS: Creatine Phosphokinase 10444 U/L (55-170)
--- NOTE | 2024-02-14 15:10 | PTCARENOTE ---
Addendum entered by Ida Olsen 02/14/24 15:39:
Order received for Levo. Initiated as ordered, see MAR and intervention.
Original Note:
Pt continues with low BP, systolics in the 60's. Dr Albrecht notified and at bedside.
--- NOTE | 2024-02-14 15:18 | CM ---
Addendum entered by Zhanna Knowles 02/15/24 08:14:
Late entry, [facility] Referral sent via [facility] due to fax not going thru after repeated trys.
Original Note:
Spoke with son Aravind via phone, would prefer HD in [facility] and afternoon chair time.
[facility] has a chair available, - chair time 4-6pm.
Spoke with Matthew from [facility] [phone] an initiated the referral.
Referral ID# [id number]
Clinicals faxed to [phone].
[2024-02-14] MEDS: LEVOPHED 250 IV (15:36)
--- NOTE | 2024-02-14 16:42 | PTCARENOTE ---
Addendum entered by Ida Olsen 02/14/24 16:55:
Pt resting more comfortably at this time. Family updated by MD and this RN on pt's plan of care and discussed comfort measures. Emotional support provided. Family states they will discuss situation.
Original Note:
Pt's bp improved with levo. Family at bedside. Visitor upset and yelling at staff that pt is in pain. D/w Dr. Albrecht, okay to administer PRN Morphine at this time. Dr. Albrecht at bedside. Morphine administered as ordered, see MAR.
[2024-02-14] MEDS: TOPROL XL PO (17:02)
[2024-02-14 18:20] LABS: Glucose - Point of Care 144 mg/dl (70-99)
[2024-02-14] MEDS: NOVOLOG FLEXPEN-LOW RESISTANCE SC (18:34)
[2024-02-14] MEDS: HEPARIN 5000 UNITS SC (22:51)
[2024-02-14] MEDS: ROXICODONE PO (22:53)
[2024-02-14 23:33] LABS: Lactic Acid 1.8 mmol/L (0.7-2.0)
[2024-02-15] VITALS (43 sets, daily range): BP systolic 75–143; BP diastolic 39–112; BMI 25.0
--- NOTE | 2024-02-15 00:40 | PTCARENOTE ---
Assumed care for patient overnight, received report via dayshift RN. Pt AAOx3 frustrated at time. Pt on 2L NC O2 sat 94%. Titrated levo see worklist intervention. Patient having 10/10 pain from a 5/10 at change of shift. Given PRN morphine. Pt is
currently sleeping. Pt tolerating Q2 hour turns. CHG bath given and HD cath site clean dry and intact. Plan is to continue with HD in AM and possible hida scan. Pt has call cisse within reach.
--- NOTE | 2024-02-15 01:05 | PTCARENOTE ---
Patient bladder scanned for 202ml see worklist. Pt does not feel like he needs to urinate.
[2024-02-15] MEDS: MORPHINE SULFATE 1 MG IV ×2 (04:13→11:48)
--- NOTE | 2024-02-15 04:36 | PTCARENOTE ---
Patient bladder scanned for 300ml.
--- NOTE | 2024-02-15 07:34 | W.PN.HOSP.TC ---
Addendum entered and electronically signed by Eden Albrecht MD, Resident 02/18/24 22:25:
This is in response to CDI:
Stage 1 sacral pressure ulcer
Addendum entered and electronically signed by Coleman Pimentel MD 02/15/24 21:30:
Attending Addendum-
I saw and evaluated the patient. I reviewed the resident�s note and agree with findings and plan as documented in the resident�s note. Sub:complains if pain all over in am while on HD. seen in afternoon at request of nursing. patients lower
extremities appears mottled increased work of breathing hypotension requiring increased Levophed. patient states 'im done i dont want any of these treatments i just want to be kept comfortable and my pain managed.' Patient Full 12 point ROS
reviewed and negative except as documented Exam: Vitals reviewed in chart GEN- mod resp disress neck right non tunneled IJ CDI heart / SM @ rusb tachycardic lungs crackes at bases b/l abd soft mildly distended NT no rebound/guarding LE +2 pitting
edema no pulses dopplerable or palpable mottles skin on b/l le. diaz in place draining clear yellow urine
Plan:
# B/L LE critical limb ischemia
- Known distal aortic and bilateral iliac occlusions
- patient refusing further workup
- pain control
- start comfort care measures
#Acute on chronic renal failure
-Nephrology following
-HC 02/11, 02/12, 02/14
-unclear etiology
-patient refusing further HD will respect wishes
- transition to comfort care
# Transaminitis
-repeat LFT in am
-Potentially related to rhabdo
-check HIDA 02/14- No scintigraphic evidence of common bile duct obstruction.
-unclear etiology
# Hypotension
- DC levophed
- comfort care
# DM2
# Chronic HFmrEF
- echo 45-50%
- unable to remove fluid due to low BPs
- DC HD
# CAD
- DC aspirin Plavix
# Rhabdomyolysis
- cpk improving by HD
- hold statin
- unclear etiology likely autoimmune process
- poor prog- start comfort care
# HTN-
- metoprolol on hold
Code- DNR
dispo- to start comfort care d/w family all parties in agreement
ACP
Patient consented to discuss, was alone reviewd with son, time spent explanation of advance directives, changes in health status, patient�s health care wishes if the patient becomes unable to make health decisions, goals of care, code status, and
prognosis-patient desires to be comfort care no further aggressive treatments. patient is AAO x 3, son in full agreement - 20 minutes
Time spent coordinating care, review of plan of care with resident, personally reviewed previous records in EMR, med rec, labs, radiology, d/w nursing,CC family total time documented is exclusive of any additional time listed that was spent in
advance care planning discussion -�60 minutes
Original Note:
Today's Communication/Plan
-
HIDA scan
Third session of hemodialysis
Pain management
Continue midodrine/pressors as needed
Assessment / Plan
Assessment / Plan
77-year-old male presents with lower extremity weakness from 1 week prior to admission. Initial labs in ED showed elevated LFTs, elevated creatinine at 7, elevated creatinine kinase>90968, elevated lipase at 1336. Sodium and potassium were within
normal limits on admission. Bladder scan yielded 169 cc urine in ED. EKG showed NSR and hemodynamics were stable.
Abdominal US (02/09):Intrahepatic and extrahepatic bile duct dilatation. Gallbladder hydrops. No sonographic evidence for a shadowing gallbladder calculus. BILE DUCTS: There is intrahepatic or extrahepatic biliary dilatation. The common bile duct
measures 15 mm in diameter.
Abd/pelvis MRI (02/10): Minimal upper abdominal ascites. Findings suspicious for pancreatitis. Clinical correlation recommended.
Distended gallbladder. Biliary ductal dilatation appears relatively stable compared to prior CT examination from September 2022. No definite evidence of choledocholithiasis. No evidence of cholelithiasis on MRI examination.
Renal Artery US (02/09): Both renal arteries are patent. Elevated velocities and elevated renal to aortic ratios observed bilaterally (3.2 on the right and 3.5 on the left) suggestive for mild bilateral stenoses.
Echo (02/10):Normal left ventricular size and mildly reduced systolic function. LV ejection fraction is 45-50% by visual estimation, mild global hypokinesis.Severe aortic stenosis (chronic)
Chronic conditions prior to admission
DM type II
CAD/ [place]
Esssential HTN
HLD
CKD
HFrEF
BPH
Moderate/severe
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
Assessment and Plan
#Acute on chronic renal failure
-Nephrology following
-Completed 2 sessions of hemodialysis on 02/11 and 02/12
-Due for third session of hemodialysis today most likely in the afternoon
-Monitor weight and I/O daily
-Avoid nephrotoxins as much as possible
-FeNa>5-May require eventual renal biopsy
-high CK-likely rhabdo possibly in the setting of prolonged immobilization
#Hypoglycemia
-Hypoglycemic protocol
-Currently controlled
-Continue bedside glucose monitoring
- D5 N/S @50
#Transaminitis/CBD dilation
-Elevated AST/ALT possibly in the setting of rhabdomyolysis
-GI is following
-CLAUDIA, C3, C4, MPO, PR3 within normal limits
-Acetaminophen toxicity negative
-Viral hepatitis panel negative
-No morphine administered overnight-patient going for HIDA scan at 8am
# Gallbladder hydrops
-GI following-management deferred to general surgery
-General Surgery-no indication for surgery at this time-signed off
#CAD
-Continue heparin and aspirin
-Hold Plavix for now
# Low systolic blood pressure
-Midodrine 5 3 times daily
-Pressors if needed to maintain SBP more than 90
-lactic acid<2-no need to trend further
# Tachycardia
-Receiving Toprol
# Pain management
Oxycodone 5 every 4 hours
IV morphine 1 mg every 2 hours
#DVT prophylaxis
Heparin SQ
CODE STATUS: DNR
Spoke in-person to son Aravind and daughter Agustina (on the phone) about how they would like to proceed regarding their father's clinical condition. They would like to take some more time to decide whether they would want him to be transferred to
comfort care/hospice.
Anticipated Discharge: > 48 hours
Subjective/Interval History
-
Date of Service: February 15, 2024
Patient back from [facility]. Complains of pain all over body.
Objective Data
-
Labs:
Laboratory Results
02/15/24
06:00
WBC Pending
Hgb Pending
Hct Pending
Plt Count Pending
Sodium Pending
Potassium Pending
Chloride Pending
Carbon Dioxide Pending
BUN Pending
Creatinine Pending
Glucose Pending
Calcium Pending
Vital Signs:
Vital Signs
Temp Pulse Resp BP Pulse Ox
98.6 F 93 13 106/70 94
02/15/24 03:33 02/15/24 06:00 02/15/24 04:00 02/15/24 06:00 02/15/24 06:00
I&O
02/14/24 02/15/24 02/16/24
06:59 06:59 06:59
Intake Total 240 / 240 600 / 600
Output Total 650 / 650
Balance -410 / -410 600 / 600
Review of Systems
-
History Source: Patient
Constitutional: Reports Other (severe pain all over body)
Respiratory: Reports Trouble Breathing
Abdomen/GI: Reports Abdominal Pain
Physical Exam
-
General: Appears in Distress and Appears Chronically Ill
HEENT: Atraumatic and Anicteric
Respiratory: Clear to Auscultation
Cardiac: Regular Rhythm and S1/S2
GI: Soft, Nontender, Nondistended and Normal Bowel Sounds
Skin: Warm and Dry
Neuro: Awake, Alert, Oriented and AO x 3
[2024-02-15] MEDS: D5/0.9% SODIUM CHLORIDE 1000 IV ×2 (07:57→12:40)
[2024-02-15] MEDS: NOVOLOG FLEXPEN-LOW RESISTANCE 1 UNITS SC (07:59)
--- NOTE | 2024-02-15 08:09 | PTCARENOTE ---
Several calls received from GI and Nuc Med. HD RN at bedside to begin treatment. Informed pt is needed urgently for HIDA and to hold HD. Pt to Nuc Med with another RN.
[2024-02-15 08:10] LABS: Glucose - Point of Care 152 mg/dl (70-99)
[2024-02-15] MEDS: LEVOPHED 250 IV (11:05)
--- NOTE | 2024-02-15 11:19 | W.PN.GI.CBS2 ---
Today's Communication / Plan
-
HIDA nonvisualization GB. Contrast passes into SB.
Appreciate Surgical input. Nontender in RUQ, false positive HIDA can occur. Hold off on cholecystostomy tube
LFTs trending up- await LFTs today. Perhaps he passed a stone. No evidence of CBD stone on MRI and CBD not obstructed on HIDA
Follow abd exam and LFTs, also shock liver possible with ARF/rhabdo, but does not explain pancreatitis
Assessment / Plan
-
Vikash is a 78yo M with h/o DM, CAD, CM, and aortic stenosis with CKD who presents with acute bilateral LE weakness with concern for rhabdomyolysis. GI consulted for elevated LFTs and CBD dilation. He denies abdominal pain, nausea/vomiting,
diarrhea, dysphagia. Vitals stable, exam is obese NTTP, NABS. Labs reviewed elevated lipase 1336. CK 20,394. LFTs in hepatocellular pattern. MRI suspicious for pancreatitis. Distended gallbladder. Biliary ductal dilatation appears relatively
stable compared to prior CT examination from September 2022. HIDA no evidence of CBD obstruction. Nonvisualization of GB but false positive studies can occur
Impression
- Elevated LFTs
AST/ALT may rise in setting of rhabdomyolysis (elevated CK and muscle weakness) not liver disease
Other consideration is passed gallstone or congestive hepatopathy
- Distended or hydrops gallbladder
- Pancreatitis- lipase 1336
- Acute on chronic kidney injury
- DM
- CAD
- CM
- Aortic stenosis
Subjective
Subjective
Date of Service: February 15, 2024
Pt returned from HIDA scan. c/o suprapubic pain
Objective
Data Reviewed
Laboratory Data:
Laboratory Results
PT 16.6 Sec (11.4-14.6) H 02/12/24 05:53
INR 1.32 02/12/24 05:53
Magnesium 2.4 mg/dl (1.6-2.3) H 02/11/24 05:55
Total Bilirubin 1.4 mg/dl (0.2-1.3) H 02/13/24 06:24
AST 1032 U/L (17-59) H* 02/13/24 06:24
ALT 505 U/L (0-50) H* 02/13/24 06:24
Alkaline Phosphatase 331 U/L (38-126) H 02/13/24 06:24
Lipase 1336 U/L (23-300) H* 02/11/24 05:55
Vital Signs and I&O:
Vital Signs
Temp Pulse Resp BP Pulse Ox
98.6 F 114 23 106/64 90
02/15/24 03:33 02/15/24 11:06 02/15/24 11:06 02/15/24 11:06 02/15/24 11:06
I&O
02/14/24 02/15/24 02/16/24
06:59 06:59 06:59
Intake Total 240 / 240 600 / 600
Output Total 650 / 650
Balance -410 / -410 600 / 600
Physical Exam
Physical Exam
GI: Soft, Non Distended and Tender (primarily tender in suprapubic region)
[2024-02-15] MEDS: LOW STRENGTH ASPIRIN 81 MG PO (11:32)
[2024-02-15] MEDS: HEPARIN 5000 UNITS SC (11:32)
[2024-02-15 11:53] LABS: Glucose - Point of Care 131 mg/dl (70-99)
--- NOTE | 2024-02-15 11:53 | W.PN.UPDATE ---
Update Note
Progress Note Update
Asked to see pt again due to non-vis of GB on HIDA scan yesterday. HIDA obtained due to increasing abd pain. The pain is localized to the suprapubic region, he denies any upper abd pain. On examhe has no ttp to epigastrium or RUQ. There is mild ttp
to suprapubic area. He also reports urinary incontinence since diaz was DC'ed.
In setting of acute pancreatitis, there is a high rate of false positive HIDA (>30%), and I believe this is the case here.
Pt is without epigastric or RUQ ttp.
Suspect LFT derangements 2/2 shock state/renal insufficiency, unlikely obstructive process
Though no gallstones are present on imaging, he is the type of patient who could develop acalculous cholecystitis, however in the absence of pain/ttp to the area this is highly unlikely.
LFTs today are pending, would cont to trend
I do not recommend any invasive mgmt for his gb at this time.
He may be retaining urine, would consider replacing diaz vs consult Urology
All other care as per primary team.
Pls call with ?s
[2024-02-15] MEDS: NOVOLOG FLEXPEN-LOW RESISTANCE SC ×2 (12:39→17:34)
[2024-02-15] MEDS: MANNITOL 25% 12.5 GRAMS IV ×2 (13:06→14:56)
[2024-02-15 13:13] LABS: Hematocrit 34.8 % (39.0-52.0); Hemoglobin 11.8 g/dL (13.0-18.0); Mean Corp Hgb Conc. 33.9 g/dL (33.0-37.0); Mean Corpuscular Hgb 32.3 pg (27.0-31.0); Mean Corpuscular Volume 95.3 fL (80.0-94.0); Mean Platelet Volume 9.7 fL (7.4-10.4); Platelet Count 155 10^3/uL (130-400); Red Blood Cell Count 3.65 10^6/uL (4.70-6.10); Red Cell Dist. Width 15.6 % (11.5-14.5)
[2024-02-15 13:25] LABS: Blood Urea Nitrogen 56 mg/dl (9-20); Calcium 7.3 mg/dl (8.4-10.2); Carbon Dioxide 30 mmol/L (22-30); Chloride 95 mmol/L (98-107); Glucose 139 mg/dl (70-99); Potassium 4.6 mmol/L (3.5-5.1); Sodium 133 mmol/L (135-145)
--- NOTE | 2024-02-15 14:15 | VATNOTE ---
02/14 Patient has beenn on levophed since 02/13 @1536. Provider Eden Albrecht contacted regarding need for PICC if patient continues on pressures. Provider stated patient may be weaned off if tolerated. VAT will assess need for central line
again.
--- NOTE | 2024-02-15 14:16 | W.PN.NEPH.HD ---
Assessment
-
Patient seen on hemodialysis
Systolic blood pressure 100 on Levophed support
Will titrate up Levophed pressor support as needed to augment ultrafiltration
Patient appears to be clinically declining
Will attempt repeat dialysis tomorrow
Acute kidney injury thought to be due to underlying rhabdo of unknown origin and or ischemic insult
Ongoing pancreatitis of unknown origin
Progress Note - Hemodialysis
-
Date of Service: February 15, 2024
Duration: 30 minutes and 3 hours
Potassium Bath: 3
Calcium Bath: 2.5
Opti-Dialyzer: 160
Ultrafiltration: Other (1 kg as hemodynamically tolerated)
Blood Flow: 400
Dialysate Flow: 600
Heparin: None
EPO: None
--- NOTE | 2024-02-15 14:30 | PN.CDI ---
CDI
- -
CDI:
Physician Documentation Request
Admit Date: 02/10/24 16:44
Dear Doctor Ambrocio,
Patient admitted with acute on chronic renal failure.
02/10 Nursing skin assessment, 'Stage 1 sacral pressure injury, POA.'
Physician documentation of the type and location of wounds is required for compliant documentation. Based on the above clinical findings and your assessment, please provide the following in your progress note:
Type (etiology) of ulcer/wound:
- Pressure (decubitus) ulcer
- Other
For a pressure ulcer, please also include the stage* of the ulcer:
- Stage 1 - Skin intact, non-blanchable redness
- Stage 2 - Partial thickness loss of dermis, includes intact or open blister
- Stage 3 - Full thickness tissue not including bone, tendon or muscle
- Stage 4 - Full thickness tissue loss, including exposed bone, tendon or muscle
- Unstageable - Full thickness loss in which the base of the ulcer is covered by slough (yellow, stephen, farmer, green or brown) and/or eschar (stephen, brown or black) in the wound bed.
- Unable to determine
Use of terms such as suspected, likely, concern for, or probable (associated with a specific diagnosis that is being evaluated, monitored, or treated as if it exists) are acceptable and can be coded in the inpatient setting, when documented at the
time of discharge.
Thank you,
Maribell WAGONER,RN,CCDS
CDI Specialist
Available via tiger text
Please use your independent medical judgment in providing your response.
*Source: National Pressure Ulcer Advisory Panel (NPUAP)
[2024-02-15] MEDS: ROXICODONE 5 MG PO (14:35)
--- NOTE | 2024-02-15 15:05 | PTCARENOTE ---
Addendum entered by Ida Olsen 02/15/24 18:29:
Correction for original note: 'Pt desatting on 2L NC, oxygen increased to 6L NC without *improvement*'
Addendum entered by Ida Oslen 02/15/24 15:51:
Order placed by provider for additional dose of IV Morphine, advised to administer now by Dr Pimentel- eleni PECK.
Original Note:
Pt desatting on 2L NC, oxygen increased to 6L NC without HD nurse reports pt is telling her he wants the HD turned off. RT at bedside to place pt on 15L MFNC. RT states pt telling her to 'turn it all off,' when RT questioned pt to clarify what he
was refereeing to, he stated 'turn off my breathing.' This RN spoke with pt; pt states he understands that if we stop these treatment measures he will not survive- verbalized understanding. Dr. Albrecht, Dr. Pimentel and Dr. Grayson up to
bedside. This RN noted that pt's legs are now mottled in color up to the thigh and unable to find doppler pulses. This RN called pt's son Aravind who states he will be returning to the hospital.
[2024-02-15 15:23] LABS: ALT (SGPT) 641 U/L (0-50); Albumin 2.2 g/dl (3.5-5.0); Alkaline Phosphatase 453 U/L (38-126); Direct Bilirubin 1.5 mg/dl (0.0-0.4); Total Protein 4.6 g/dl (6.3-8.2)
[2024-02-15] MEDS: HEPARIN 2500 UNITS INTRACATH (15:36)
[2024-02-15] MEDS: MORPHINE SULFATE 3 MG IV (15:43)
[2024-02-15] MEDS: MORPHINE SULFATE 4 MG IV (16:37)
--- NOTE | 2024-02-15 16:42 | PTCARENOTE ---
Pt's family arrived at bedside. Dr. Albrecht to bedside. Verbal order received for additional dose of IV Morphine. Administered as ordered, see MAR. Family and pt verbalized agreement with comfort measures- physicians made aware via TT. Emotional
support provided to family.
[2024-02-15] MEDS: MORPHINE 100 IV (17:23)
[2024-02-15 17:25] LABS: AST (SGOT) 1260 U/L (17-59)
--- NOTE | 2024-02-15 17:32 | PTCARENOTE ---
scallop cutter reiki practitioner arrived to bedside. Morphine gtt initiated per protocol- see MAR and intervention.
--- NOTE | 2024-02-15 17:51 | W.PN.UPDATE ---
Addendum entered and electronically signed by Eden Albrecht MD, Resident 02/22/24 10:53:
Response to CDI:
Oxygen desaturation d/t Acute hypoxic respiratory failure
Original Note:
Update Note
Progress Note Update
Patient's lower extremity appears mottled. He is in severe pain and is requesting to stop all medications and medical interventions including dialysis. Patient understands that stopping medications/interventions can be life-threatening but confirms
that he would rather be comfortable.
Spoke to Aravind (son) and daughter-in law at bedside. They are agreeable to transfer to comfort care. Agustina (daughter) is on a flight and will arrive in the evening.
All medications have been discontinued and patient was transferred to comfort care.
--- NOTE | 2024-02-15 21:45 | PTCARENOTE ---
Tele monitor alarming asystole. Patient found without a heart beat and apneic. Family at bedside. RAZOR GRINDER Hephziba made aware. Morphine gtt stopped.
--- NOTE | 2024-02-15 22:52 | W.PN.DEATH ---
Pronouncement of
-
Called to see patient to pronounce.
No spontaneous heart tones or respirations noted.
Patient not responsive to verbal stimuli.
Patient is pronounced .
Time of : 21:30
Date of : 02/15/24
Family Notified: Yes
--- NOTE | 2024-02-15 23:20 | PTCARENOTE ---
Post mortem care done. Pt cleaned up, IVs/ tele monitor removed. HD catheter remains in place to RCW. [place] [facility] [place] [facility] notified; pt meets prelim criteria. Data Analytics Developer Tori was made aware of pt passing. Family left with pt
belongings. Dentures in mouth.
--- NOTE | 2024-02-16 15:23 | PN.CDI ---
CDI
- -
CDI:
Physician Documentation Request
Admit Date: 02/10/24 16:44
Dear Doctor Ambrocio,
Patient admitted with SHAYAN.
02/14 PCN, 'Pt desatting on 2L NC, oxygen increased to 6L NC without *improvement*.... RT at bedside to place pt on 15L MFNC..'
02/15 PN,'...seen in afternoon at request of nursing. patients lower extremities appears mottled increased work of breathing hypotension...'
Selected Entries
02/15/24
12:45 02/15/24
13:15 02/15/24
14:15
SaO2 82 86 86
02/15/24
14:30
SaO2 88
Please provide in your note the diagnosis associated with the above findings:
Acute hypoxic respiratory failure
Hypoxia only
Other
Use of terms such as suspected, likely, concern for, or probable (associated with a specific diagnosis that is being evaluated, monitored, or treated as if it exists) are acceptable and can be coded in the inpatient setting, when documented at the
time of discharge.
Thank you,
Maribell WAGONER,RN, CCDS
CDI Specialist
Available via tiger text
Please use your independent medical judgment in providing your response.
== END 2024-02-15 21:30 | disposition expired | DRG 682 ==
LOC: IMU 16:44
PROVIDERS: Hospitalist; Nurse Practitioner; Physician Assistant; Radiology Diagnostic Radiology; Specialist; ADMITTING PHYSICIAN Student in an Organized Health Care Education/Training Program; ATTENDING PHYSICIAN Family Medicine; CONSULT PHYSICIAN Internal Medicine Gastroenterology; CONSULT PHYSICIAN Surgery; EMERGENCY PHYSICIAN Emergency Medicine; FAMILY PHYSICIAN Family Medicine; OTHER PHYSICIAN Specialist; OTHER PHYSICIAN Surgery Vascular Surgery
PROC: 02H633Z Insertion of Infusion Device into Right Atrium, Percutaneous Approach (ICD-10-PCS; 2024-02-11)
PROC: 5A1D70Z Performance of Urinary Filtration, Intermittent, Less than 6 Hours Per Day (ICD-10-PCS; 2024-02-12)
DX: N17.9 Acute kidney failure, unspecified (principal); J96.01 Acute respiratory failure with hypoxia; K85.90 Acute pancreatitis without necrosis or infection, unspecified; E87.1 Hypo-osmolality and hyponatremia; I13.0 Hypertensive heart and chronic kidney disease with heart failure and stage 1 through stage 4 chronic kidney disease, or unspecified chronic kidney disease; I50.22 Chronic systolic (congestive) heart failure; M62.82 Rhabdomyolysis; K82.1 Hydrops of gallbladder; Z66 Do not resuscitate; I25.10 Atherosclerotic heart disease of native coronary artery without angina pectoris; E11.22 Type 2 diabetes mellitus with diabetic chronic kidney disease; E11.42 Type 2 diabetes mellitus with diabetic polyneuropathy; E11.51 Type 2 diabetes mellitus with diabetic peripheral angiopathy without gangrene; E78.00 Pure hypercholesterolemia, unspecified; I70.0 Atherosclerosis of aorta; I35.0 Nonrheumatic aortic (valve) stenosis; N40.0 Benign prostatic hyperplasia without lower urinary tract symptoms; I70.8 Atherosclerosis of other arteries; N18.9 Chronic kidney disease, unspecified; K83.8 Other specified diseases of biliary tract; E11.649 Type 2 diabetes mellitus with hypoglycemia without coma; I95.9 Hypotension, unspecified; R32 Unspecified urinary incontinence; I25.2 Old myocardial infarction; Z87.891 Personal history of nicotine dependence; Z79.84 Long term (current) use of oral hypoglycemic drugs; Z79.02 Long term (current) use of antithrombotics/antiplatelets; Z79.82 Long term (current) use of aspirin; Z79.899 Other long term (current) drug therapy; Z79.891 Long term (current) use of opiate analgesic; Z85.46 Personal history of malignant neoplasm of prostate
CPT/HCPCS: 36556; 74181; 76700; 76937; 77001; 78226; 80048; 80053; 80076; 80143; 81003; 81015; 82248; 82550; 82570; 82728; 82962; 83036; 83516; 83540; 83550; 83605; 83690; 83735; 84300; 84443; 85025; 85027; 85610; 86038; 86063; 86160; 86308; 86704; 86705; 86709; 86803; 87340; 87811; 93005; 93306; 93922; 93925; 93975; 99285; A9537; C1752; G0257; P9047